=== PATIENT | male | born 1945 | race Caucasian/White ===

== ENCOUNTER → 2020-06-24 14:49 | Outpatient (BNV) | payer MEDICARE, MEDICAID, SELFPAY | PROVIDERS: Visit Provider Internal Medicine | DX: D69.6 Thrombocytopenia, unspecified (principal); D64.9 Anemia, unspecified; E53.8 Deficiency of other specified B group vitamins; N28.9 Disorder of kidney and ureter, unspecified | CPT/HCPCS: 99213; 99214 ==

== ENCOUNTER 2022-12-20 10:41 | Outpatient (REF) | payer MEDICARE, MEDICAID, SELFPAY ==
--- NOTE | ~2022-12-20 | XR_ITS ---
EXAMINATION: XR FOOT, RIGHT XR ANKLE, RIGHT CLINICAL INFORMATION: Pain COMPARISON: None available. TECHNIQUE: Reason right foot 3 views of the right ankle FINDINGS: No acute visible fracture or dislocation. Ankle mortise is symmetric. Multi joint arthritic changes. Spurring the dorsal midfoot. Pes planus. Tiny plantar calcaneal heel spur. Joint spaces and alignment are otherwise maintained. Soft tissue prominence along the dorsum of the forefoot. XR/XR foot RT min 3V IMPRESSION: 1. No acute visible fracture or dislocation. 2. Multi joint arthritic changes. 3. Pes planus. 4. Soft tissue prominence along the dorsum of the forefoot.
--- NOTE | ~2022-12-20 | XR_ITS ---
EXAMINATION: XR FOOT, RIGHT XR ANKLE, RIGHT CLINICAL INFORMATION: Pain COMPARISON: None available. TECHNIQUE: Reason right foot 3 views of the right ankle FINDINGS: No acute visible fracture or dislocation. Ankle mortise is symmetric. Multi joint arthritic changes. Spurring the dorsal midfoot. Pes planus. Tiny plantar calcaneal heel spur. Joint spaces and alignment are otherwise maintained. Soft tissue prominence along the dorsum of the forefoot. XR/XR ankle RT min 3V IMPRESSION: 1. No acute visible fracture or dislocation. 2. Multi joint arthritic changes. 3. Pes planus. 4. Soft tissue prominence along the dorsum of the forefoot.
== END 2022-12-20 10:42 | disposition home or self-care (01) ==
LOC: HO.HHCX 10:41
PROVIDERS: Visit Provider Family Medicine
DX: M25.571 Pain in right ankle and joints of right foot (principal)
CPT/HCPCS: 73610; 73630

== ENCOUNTER 2023-03-29 14:57 | Outpatient (REF) | payer MEDICARE, MEDICAID, SELFPAY | END 2023-03-29 14:58 | disposition home or self-care (01) | LOC: HO.HHCX 14:57 | PROVIDERS: Visit Provider Internal Medicine | DX: M54.50 Low back pain, unspecified (principal) | CPT/HCPCS: 72100 ==

== ENCOUNTER 2023-09-27 11:27 | Outpatient (REF) | payer MEDICARE, MEDICAID, SELFPAY ==
[2023-09-27 13:24] LABS: Basophils Absolute Auto 0.1 X10*3/uL (0.0-0.2); Basophils Percent Auto 0.8 % (0-2); Eosinophils Absolute Auto 1.7 X10*3/uL (0.0-0.4); Eosinophils Percent Auto 22.6 % (0-4); Hematocrit 34.3 % (42.0-52.0); Hemoglobin 11.6 g/dl (14.0-18.0); Imm Gran Abs Auto 0.02 X10*3/uL (0.00-0.03); Imm Gran Pct Auto 0.3 % (0.0-0.4); Lymphocytes Absolute Auto 1.6 X10*3/uL (1.2-4.9); Lymphocytes Percent Auto 20.2 % (20-40); MANUAL DIFF FLAG SCAN; Mean Corpuscular HGB Conc 33.8 g/dl (31.0-36.0); Mean Corpuscular Hemoglobin 29.4 pg (27.0-33.0); Mean Corpuscular Volume 86.8 fL (80.0-98.0); Mean Platelet Volume 9.9 fL (9.4-12.4); Monocytes Absolute Auto 0.6 X10*3/uL (0.1-1.2); Monocytes Percent Auto 8.4 % (2-11); Neutrophils Absolute Auto 3.7 x10*3/uL (2.0-8.3); Neutrophils Percent Auto 47.7 % (45-73); Platelet Count 114 X10*3/uL (160-400); Red Blood Count 3.95 X10*6/uL (4.60-5.80); Red Cell Distribution Width 13.4 % (11.0-16.0); SCAN SMEAR FLAG 1; White Blood Count 7.7 X10*3/uL (4.8-10.8)
[2023-09-27 14:02] LABS: Anion Gap 14 (12-20); Blood Urea Nitrogen 23 mg/dL (9-16); Calcium 9.4 mg/dL (8.4-10.2); Carbon Dioxide 18 mmol/L (22-29); Chloride 112 mmol/L (96-108); Estimated Glomerular Filt Rate 51; Glucose Random 166 mg/dL (60-115); Potassium 5.2 mmol/L (3.3-5.1); Sodium 139 mmol/L (135-145); Uric Acid 10.7 mg/dL (3.4-7.0)
[2023-09-27 14:04] LABS: SLIDE REVIEW VERIFIED
[2023-09-27 14:26] LABS: Erythrocyte Sedimentation Rate 11 MM/HR (0-15)
== END 2023-09-27 11:28 | disposition home or self-care (01) ==
LOC: HO.HHCL 11:27
PROVIDERS: Visit Provider Family Medicine
DX: M25.571 Pain in right ankle and joints of right foot (principal)
CPT/HCPCS: 36415; 80048; 84550; 85025; 85652

== ENCOUNTER 2024-02-20 15:20 | Outpatient (REF) | payer MEDICARE, MEDICAID, SELFPAY ==
--- NOTE | ~2024-02-20 | XR_ITS ---
EXAMINATION: XR SHOULDER, RIGHT CLINICAL INFORMATION: Pain. COMPARISON: None available. TECHNIQUE: AP external rotation, Grashey, scapular Y, and axillary views of the right shoulder. FINDINGS: No acute cortical disruption or malalignment. No lytic or blastic lesions. No subcutaneous emphysema. No metallic or radiopaque foreign body. XR/XR shoulder RT min 2V IMPRESSION: No acute fracture or dislocation. Negative exam. Electronically signed by: Lyndon Tijerina MD 02/21/2024 07:13 AM TERRANCE ACUÑA
== END 2024-02-20 15:21 | disposition home or self-care (01) ==
LOC: HO.HHCX 15:20
PROVIDERS: Visit Provider Family Medicine
DX: M25.511 Pain in right shoulder (principal)
CPT/HCPCS: 73030

== ENCOUNTER → 2024-02-20 15:21 | Outpatient (BNV) | payer MEDICARE, MEDICAID, SELFPAY | PROVIDERS: Visit Provider Radiology Diagnostic Radiology | DX: M25.511 Pain in right shoulder (principal) | CPT/HCPCS: 73030 ==

== ENCOUNTER 2024-11-06 10:19 | Outpatient (REF) | payer MEDICARE, MEDICAID, SELFPAY ==
--- OUTSIDE RECORDS SUMMARY | 2024-11-06 10:31 | XMS_ITS | Clinical Summary ---
Author Organization [facility], Address [address] [place] [address] [address] [address] Phone Care Team Providers Care Sales Producer Name Role Phone Ayesha Sexton MD Primary Care Provide r Allergies No known active allergies Medications amLODIPine (NORVASC) 10 MG tablet Take 10 mg by mouth 1 (one) time each day Active aspirin (ST SUKHDEEP) 81 MG EC tablet Take 81 mg by mouth 1 (one) time each day Active lisinopril (PRINIVIL,ZESTRI L) 30 MG tablet Take 30 mg by mouth 1 (one) time each day Active metFORMIN XR (GLUCOPHATE-XR) 500 MG 24 hr tablet Take 1,000 mg by mouth 1 (one) time each day with dinner Active simvastatin (ZOCOR) 20 MG tablet Take 20 mg by mouth 1 (one) time each day Active Cholecalciferol (VITAMIN D) 50 MCG (2000 UT) capsule Take 2,000 Units by mouth 1 (one) time each day Active allopurinol (ZYLOPRIM) 300 MG tablet Take 300 mg by mouth 1 (one) time each day Active Active Problems Problem Noted Date Diagnosed Date Chronic kidney disease, stage 3 (moderate) 06/03 Gout Overview (06/03/2019): Hyperuricemia Anemia Essential hypertension Type 2 diabetes mellitus Family History Medical History Relation Comments Diabetes Father Hypertension Father Diabetes Mother Hypertension Mother Diabetes Sibling Hypertension Sibling Kidney disease Sibling multiple PCKD Relation Status Comments Father Mother Sibling Social History Tobacco Use Types Packs/Day Years Used Date Smoking Tobacco: Never Sex and Gender Information Value Date Recorded Sex Assigned at Not on file Legal Sex Male 4:32 PM EST Gender Identity Not on file Sexual Orientation Not on file Last Filed Vital Signs Vital Sign Reading Time Taken Comments Blood Pressure 128/72 06/04/2019 8:25 AM EST Pulse 72 01/29/2019 12:00 PM EDT Temperature - - Respiratory Rate - - Oxygen Saturation - - Inhaled Oxygen Concentration - - Weight 93.7 kg (206 lb 9.6 oz) 06/04/2019 8:25 A M EST Height 170.2 cm (5' 7 ) 06/04/2019 8:25 AM EST Body Mass Index 32.36 06/04/2019 8:25 AM EST Plan of Treatment Health Maintenance Due Date Last Done Comments Pneumococcal Vaccine: 50+ Years (1 of 2 - PCV) 1964 Diabetes: Ophthalmology Exam 06/03/2019 Diabetes: Pedal Pulse Checked 06/03/2019 Diabetes: Sensory Foot Exam 06/03/2019 Diabetes: Visual Foot Exam 06/03/2019 Diabetes: Hemoglobin A1C 09/02/2019 020, 01/29/2019, 07/22/2018 Influenza Vaccine (#1) 2024 Hepatitis B Vaccine Aged Out No longe r eligible based on patient's age to complete this topic Procedures Procedure Name Priority Date/Time Associated Diagnosis Comments HEMOGLOBIN A1C Routine 06/04/2019 8:50 AM EST Chronic kidney disease, stage 3 (moderate) (HCC) from Last 3 Months or Most Recently Relevant to Health Maintenance Results * (ABNORMAL) Hemoglobin A1c (06/04/2019 8:50 AM EST) Hemoglobin A1C 7.6(H) (4.0-5.6) % [facility] Comment: Effective 05/11/19, hemoglobin A1c reference range changed. MONITORING: In known diabetic patients, hemoglobin A1c targets should be discussed with health care provider. DIAGNOSTIC USE: The [place] Diabetes Association (ADA) and the World Health Organization (WHO) recommend the use of HbA1c to diagnose diabetes using a threshold of 6.5%. Patients who have an HbA1c between 5.7% and 6.4% are considered at increased risk for developing diabetes in the future. CAUTION: Falsely low HbA1c results may be observed in patients with hemolytic anemia, homozygous forms of abnormal hemoglobin (e.g. SS, CC, SC), , recent blood loss or hemoglobin F greater than 7%. Fructosamine may be used as an alternate test in these cases. REFERENCE: ADA: Standards of Medical Care in Diabetes 2020, The Journal of Clinical and Applied Research and Education Volume 43, Supplement 1 Testing performed or reported by [facility], a Service of [facility], [address] [place] [id number] Ugo Roman MD, Industrial Design Intern Blood specimen (specimen) Venous blood / Unknown 06/04/2019 8:50 AM EST 06/04/2019 8:51 AM EST us Ryann NGUYEN LAB BLOOD ORDERABLES Final Res ult [facility] from Last 3 Months or Most Recently Relevant to Health Maintenance Insurance [address] [place] [id number] Medicare Care Teams Sales Producer Relationship Specialty Start Date End Date Ayesha Sexton MD [address] [place] [address] [place] [phone] [facility] - General 02/10/19
--- OUTSIDE RECORDS SUMMARY | 2024-11-06 10:31 | XMS_ITS | Encounter Summary ---
Author Organization [employer] Address [address] [place] [address] [address] [place] [address] Care Team Providers Care End Finder Forming Department Name Role Phone Ayesha Sexton MD Primary Care Provide r Encounter Details Date Type Department Care Team (Late st Contact Info) Description 10/24/2022 Orders Only [facility] [address] [place], [place] [phone] Aixa Scott LPN Social History Tobacco Use Types Packs/Day Years Used Date Smoking Tobacco: Never Smokeless Tobacco: Never Alcohol Use Standard Drinks/Week Comments Not Currently 0 (1 standard drink = 0.6 oz pur e alcohol) Depression Answer Date Recorded Patient Health Questionnaire-9 Score 0 08/27/2022 Depression Answer Date Recorded Patient Health Questionnaire-2 Score 0 08/27/2022 Sex and Gender Information Value Date Recorded Sex Assigned at Male 02/05/2022 10:20 AM EDT Legal Sex Male 10:20 AM EDT Gender Identity Male 02/05/2022 10:20 AM EDT Sexual Orientation Choose not to disclose 2021 10:20 AM EDT documented as of this encounter Plan of Treatment Upcoming Encounters Date Type Department Care Team (Late st Contact Info) Description 12/01/2024 2:30 PM EDT Office Visit [facility] [address] [place], [place] [phone] Fanta Nolasco, OD [address] [place] [address] documented as of this encounter Procedures Procedure Name Priority Date/Time Associated Diagnosis Comments SLIDE REVIEW Routine 09/27/2023 11:30 AM EDT CBC WITH AUTO DIFFERENTIAL Routine 09/27/2023 11:30 AM EDT SED RATE BY MODIFIED WESTERGREN Routine 09/27/2023 11:30 AM EDT URIC ACID Routine 09/27/2023 11:30 AM EDT BASIC METABOLIC PANEL Routine 09/27/2023 11:30 AM EDT documented in this encounter Results * Sed Rate by Modified Westergren (09/27/2023 11:30 AM EDT) Erythrocyte Sedimentation Rate 11 0 - 15 MM/HR [facility] Comment:Patients with polycy themia and many hemoglobin abnormalitiesmay have depressed sed rates whereas patients with anemiamay have elevated sed rates. 09/27/2023 11:3 0 AM EDT 09/27/2023 12:58 PM EDT Josh Caldwell MD LAB BLOOD ORDERABLES Final Resul t Performing Organization Address City/[facility]/ZIP Co de Phone Number [facility] [address] [place] [phone] * Slide Review (09/27/2023 11:30 AM EDT) Slide Review VERIFIED [facility] 09/27/2023 11:3 0 AM EDT 09/27/2023 12:58 PM EDT Josh Caldwell MD LAB BLOOD ORDERABLES Final Resul t Performing Organization Address [facility]/ZIP Co de Phone Number [facility] [address] [place] [phone] * (ABNORMAL) CBC auto differential (09/27/2023 11:30 AM EDT) White Blood Count 7.7 4.8 - 10.8 X10*3/uL [facility] Red Blood Count 3.95(L) 4.60 - 5.80 X10*6/uL [facility] Hemoglobin 11.6(L) 14.0 - 18.0 g/dl [facility] Hematocrit 34.3(L) 42.0 - 52.0 % [facility] Mean Corpuscular Volume 86.8 80.0 - 98.0 fL [facility] Mean Corpuscular Hemoglobin 29.4 27.0 - 33.0 pg [facility] Mean Corpuscular HGB Conc 33.8 31.0 - 36.0 g/dl [facility] Red Cell Distribution Width 13.4 11.0 - 16.0 % [facility] Platelet Count 114(L) 160 - 400 X10*3/uL [facility] Mean Platelet Volume 9.9 9.4 - 12.4 fL [facility] Neutrophils Percent Auto 47.7 45 - 73 % [facility] Imm Gran Pct Auto 0.3 0.0 - 0.4 % [facility] Lymphocytes Percent Auto 20.2 20 - 40 % [facility] Monocytes Percent Auto 8.4 2 - 11 % [facility] Eosinophils Percent Auto 22.6(H) 0 - 4 % [facility] Basophils Percent Auto 0.8 0 - 2 % [facility] NRBC Pct Auto 0.0 0.0 - 0.2 /100WBC [facility] Neutrophils Absolute Auto 3.7 2.0 - 8.3 x10*3/uL [facility] Imm Gran Abs Auto 0.02 0.00 - 0.03 X10*3/uL [facility] Lymphocytes Absolute Auto 1.6 1.2 - 4.9 X10*3/uL [facility] Monocytes Absolute Auto 0.6 0.1 - 1.2 X10*3/uL [facility] Eosinophils Absolute Auto 1.7(H) 0.0 - 0.4 X10*3/uL [facility] Basophils Absolute Auto 0.1 0.0 - 0.2 X10*3/uL [facility] NRBC Abs Auto 0.000 0.0 - 0.012 X10*3/uL [facility] 09/27/2023 11:3 0 AM EDT 09/27/2023 12:58 PM EDT Josh Caldwell MD LAB BLOOD ORDERABLES Edited Resu lt - Final Performing Organization Address [facility]/ZIP Co de Phone Number [facility] [address] [place] [phone] * (ABNORMAL) Uric acid (09/27/2023 11:30 AM EDT) Uric Acid 10.7(H) 3.4 - 7.0 mg/dL [facility] 09/27/2023 11:3 0 AM EDT 09/27/2023 12:58 PM EDT Josh Caldwell MD LAB BLOOD ORDERABLES Final Resul t Performing Organization Address [facility]/ZIP Co de Phone Number [facility] [address] [place] [phone] * (ABNORMAL) Basic Metabolic Panel (09/27/2023 11:30 AM EDT) Sodium 139 135 - 145 mmol/L [facility] Potassium 5.2(H) 3.3 - 5.1 mmol/L [facility] Chloride 112(H) 96 - 108 mmol/L [facility] Carbon Dioxide 18(L) 22 - 29 mmol/L [facility] Anion Gap 14 12 - 20 [facility] Urea Nitrogen (BUN) 23(H) 9 - 16 mg/dL [facility] Creatinine, Serum 1.36 0.5 - 1.4 mg/dL [facility] Estimated Glomerular Filt Rate 51 [facility] Comment:NOTE: For -Am erican individuals, multiply the result by 1.210.Chronic Kidney Disease: Estimated GFR < 60 mL/min/1.26v9Xxcevl Kidney Disease: Estimated GFR < 15 mL/min/1.73m2 Glucose 166(H) 60 - 115 mg/dL [facility] Calcium 9.4 8.4 - 10.2 mg/dL [facility] 09/27/2023 11:3 0 AM EDT 09/27/2023 12:58 PM EDT us Josh Caldwell MD LAB BLOOD ORDERABLES Final Resul t [facility] [address] [place] [phone] documented in this encounter Visit Diagnoses Not on filedocumented in this encounter Additional Health Concerns Assessment Noted Time PHQ-9 Depression Total Score: 0 08/28/19 23 10:02 AM EDT documented as of this encounter Care Teams End Finder Forming Department Relationship Specialty Start Date End Date Ayesha Sexton MD [address] [place] [phone] PCP - General Family Medicine 12/30/17 documented as of this encounter
[2024-11-06 12:19] LABS: MANUAL DIFF FLAG NO
[2024-11-06 12:24] LABS: Hematocrit 40.3 % (42.0-52.0); Hemoglobin 13.4 g/dl (14.0-18.0); Imm Gran Abs Auto 0.03 X10*3/uL (0.00-0.03); Imm Gran Pct Auto 0.4 % (0.0-0.4); Lymphocytes Absolute Auto 1.4 X10*3/uL (1.2-4.9); Mean Corpuscular HGB Conc 33.3 g/dl (31.0-36.0); Mean Corpuscular Hemoglobin 28.8 pg (27.0-33.0); Mean Corpuscular Volume 86.5 fL (80.0-98.0); NRBC Abs Auto 0.000 X10*3/uL (0.0-0.012); NRBC Pct Auto 0.0 /100WBC (0.0-0.2); Platelet Count 131 X10*3/uL (160-400); Red Blood Count 4.66 X10*6/uL (4.60-5.80); White Blood Count 7.1 X10*3/uL (4.8-10.8)
[2024-11-06 12:53] LABS: Microalbum/Creatinine Ratio Ur 20.0 ug/mg cr (<30)
[2024-11-06 13:18] LABS: Alanine Aminotransferase 20 U/L (0-40); Albumin Level 4.5 g/dL (3.5-5.0); Alkaline Phosphatase 79 U/L (39-117); Anion Gap 13 (12-20); Aspartate Amino Transferase 21 U/L (5-37); Blood Urea Nitrogen 36 mg/dL (9-16); Calcium 9.1 mg/dL (8.4-10.2); Carbon Dioxide 18 mmol/L (22-29); Chloride 111 mmol/L (96-108); Cholesterol 149 mg/dL (<200); Estimated Glomerular Filt Rate 37; HDL Cholesterol 44 mg/dL (>40); Potassium 5.3 mmol/L (3.3-5.1); Sodium 137 mmol/L (135-145); Total Protein 7.6 g/dL (6.5-8.0); Triglycerides 152 mg/dL (<150)
== END 2024-11-06 10:20 | disposition home or self-care (01) ==
LOC: HO.HHCL 10:19
PROVIDERS: PCP Internal Medicine; Visit Provider Internal Medicine
DX: E11.22 Type 2 diabetes mellitus with diabetic chronic kidney disease (principal); N18.30 Chronic kidney disease, stage 3 unspecified; Z79.4 Long term (current) use of insulin
CPT/HCPCS: 36415; 80053; 80061; 82043; 82570; 85025

== ENCOUNTER 2024-12-10 09:33 | Outpatient (REF) | payer MEDICARE, MEDICAID, SELFPAY ==
--- OUTSIDE RECORDS SUMMARY | 2024-12-10 09:20 | XMS_ITS | Encounter Summary ---
Author Organization [employer] Address [address] [facility] 7t [place] [address] Care Team Providers Care B2B Account Executive Name Role Phone Ayesha Sexton MD Primary Care Provide r Reason for Visit * Reason Comments Earache Encounter Details Date Type Department Care Team ([facility] st Contact Info) Description 12/10/2024 9:20 AM EDT Office Visit [facility] [address] [place], [place] [phone] Josh Caldwell MD [address] [place] [address] Acute otalgia, bilateral (Primary Dx); Stage 3a chronic kidney disease (CMS/HCC) Social History Tobacco Use Types Packs/Day Years Used Date Smoking Tobacco: Never Passive Smoke Exposure: Never Smokeless Tobacco: Never Alcohol Use Standard Drinks/Week Comments Not Currently 0 (1 standard drink = 0.6 oz pur e alcohol) Depression Answer Date Recorded Patient Health Questionnaire-9 Score 0 06/24/2024 Patient Health Questionnaire-9 Score 0 06/24/2024 Last PHQ-9: Questionnaire Data Not on file 0 06/24/2024 Housing Stability Answer Date Recorded What is your housing situation today? I have ihsanmehran shetty 02/05/[address] you li ve. Do you have problems with any of the following? None of the above 02/05/2023 Food Insecurity Answer Date Recorded Within the past 12 months, y ou worried that your food would run out before you got money to buy more: Never True 02/05/2023 Within the past 12 months,th e food you bought just didn't last and you didn't have enough money to get more: Never True Transportation Answer Date Recorded In the past 12 months, has l ack of transportation kept you from medical appts, meetings, work or from getting things needed for daily living? No 02/05/2023 Utilities Answer Date Recorded In the past 12 months, has t he electric, gas, oil or water company threatened to shut off services in your home? No 02/05/2023 Depression Answer Date Recorded Patient Health Questionnaire-2 Score 0 06/24/2024 Internet Access Answer Date Recorded Internet Access Q1 No 06/24/2024 Internet Access Q2 I do not want or need it 06/06 Sex and Gender Information Value Date Recorded Sex Assigned at Male 02/05/2022 10:20 AM EDT Legal Sex Male 10:20 AM EDT Gender Identity Male 02/05/2022 10:20 AM EDT Sexual Orientation Choose not to disclose 2021 10:20 AM EDT documented as of this encounter Last Filed Vital Signs Vital Sign Reading Time Taken Comments Blood Pressure 139/79 12/10/2024 9:12 AM EDT Pulse 65 12/10/2024 9:12 AM EDT Temperature 36.8 C (98.3 F) 12/10/2024 9:12 AM EDT Respiratory Rate 18 12/10/2024 9:12 AM EDT Oxygen Saturation 98% 12/10/2024 9:12 AM EDT Inhaled Oxygen Concentration - - Weight 87.8 kg (193 lb 9.6 oz) 12/10/2024 9:12 A M EDT Height - - Body Mass Index 30.32 11/06/2024 9:43 AM EDT documented in this encounter Progress Notes * Josh Caldwell MD - 12/10/2024 9:20 AM EDT Subjective History was provided by the patient. Brent Mcghee is a 79 y.o. male who presents for evaluation of 4-day duration of bilateral ear pain. Denies any discharge or bleeding. Denies cough, congestion, or rhinorrhea. Admits to frequently using Q-tips to clean his ear canal. Patient reports his Atorvastatin dose was recently increased [id number] to 40mg by Cardiology 2 weeks ago. Has chronic diminished hearing, but denies any acute changein hearing. Denies F/C/N/V/D. Of note, his PCP ordered labs about 1 month ago. He has underlying CKD Stage 3. He was found to have a slight bump in creatinine 1.77 and borderline high K+ 5.3 (11/06/2024). He was advised to discontinue Lisinopril 40mg and start Metoprolol XL 25mg daily. States he is tolerating the medication. But he has not yet checked his follow-up BMP as recommended by PCP. Patient also has underling Type 2 DMwith last Hgb A1c 7.0 (11/06/2024). Objective Vitals: 12/10/24 0912 BP: 139/79 BP Location: Left arm Patient Position: Sitting BP Cuff Size: Adult Pulse: 65 Resp: 18 Temp: 98.3 ??F (36.8 ??C) TempSrc: Temporal SpO2: 98% Weight: 193 lb 9.6 oz (87.8 kg) Physical Exam Vitals reviewed. Constitutional: General: He is not in acute distress. Appearance: Normal appearance. He is not ill-appearing, toxic-appearing or diaphoretic. HENT: Head: Normocephalic and atraumatic. Right Ear: Tympanic membrane, ear canal and external ear normal. Left Ear: Tympanic membrane, ear canal and external ear normal. Ears: Comments: Bilateral EAC clear without erythema or edema; no cerumen; TM's clear without erythema orbulging discs. Nose: Nose normal. No congestion or rhinorrhea. Mouth/Throat: Mouth: Mucous membranes are moist. Pharynx: Oropharynx is clear. No oropharyngeal exudate or posterior oropharyngeal erythema. Eyes: Extraocular Movements: Extraocular movements intact. Conjunctiva/sclera: Conjunctivae normal. Cardiovascular: Rate and Rhythm: Normal rate and regular rhythm. Heart sounds: Normal heart sounds. Pulmonary: Effort: Pulmonary effort is normal. Breath sounds: Normal breath sounds. Musculoskeletal: Cervical back: Neck supple. Lymphadenopathy: Cervical: No cervical adenopathy. Skin: General: Skin is warm and dry. Neurological: General: No focal deficit present. Mental Status: He is alert and oriented to person, place, and time. Psychiatric: Mood and Affect: Mood normal. Behavior: Behavior normal. No visits with results within 2 Day(s) from this visit. Latest known visit with results is: Office Visit on 11/06/2024 Component Date Value Ref Range Status Glucose Blood, POC 11/06/2024 133 60 - 200 mg/dL Final Hemoglobin A1C 11/06/2024 7.0 (A) 4.0 - 5.7 % Final Creatinine, Urine 11/06/2024 69.71 mg/dL Final Microalbumin Urine 11/06/2024 14.0 mg/L Final Microalbum Creatinine Ratio Ur 11/06/2024 20.0 <30 ug/mg cr Final Albumin/Creatinine Ratio Reference Ranges: Normal: < 30 ug/mg creatinine Microalbuminuria: 30 - 300 ug/mg creatinineClinical Albuminuria: > 300 ug/mg creatinine Sodium 11/06/2024 137 135 - 145 mmol/L Final Potassium 11/06/2024 5.3 (H) 3.3 - 5.1 mmol/L Final Chloride 11/06/2024 111 (H) 96 - 108 mmol/L Final Carbon Dioxide 11/06/2024 18 (L) 22 - 29 mmol/L Final Anion Gap 11/06/2024 13 12 - 20 Final Urea Nitrogen (BUN) 11/06/2024 36 (H) 9 - 16 mg/dL Final Creatinine, Serum 11/06/2024 1.77 (H) 0.5 - 1.4 mg/dL Final Estimated Glomerular Filt Rate 11/06/2024 37 Final Chronic Kidney Disease: Estimated GFR < 60 mL/min/1.58m4Lohlkw Kidney Disease: Estimated GFR < 15 mL/min/1.73m2 Glucose 11/06/2024 125 (H) 60 - 115 mg/dL Final Calcium 11/06/2024 9.1 8.4 - 10.2 mg/dL Final Bilirubin, Total 11/06/2024 0.3 0.0 - 1.0 mg/dL Final Aspartate Amino Transferase 11/06/2024 21 5 - 37 U/L Final Alanine Aminotransferase 11/06/2024 20 0 - 40 U/L Final Total Protein 11/06/2024 7.6 6.5 - 8.0 g/dL Final Albumin Level 11/06/2024 4.5 3.5 - 5.0 g/dL Final Alkaline Phosphatase 11/06/2024 79 39 - 117 U/L Final Brent was seen today for earache. Diagnoses and all orders for this visit: Acute otalgia, bilateral (Primary) Stage 3a chronic kidney disease (CMS/HCC) Patient presents to [facility] with 4-day duration of bilateral otalgia without clinical evidence of OM orOE Denies any URI symptoms Advised to stop using Q-tips to clean his EAC Ear canals are very dry, but without erythema or edema Trial of OTC baby oil to lubricate (TM's intact) Atorvastatin dose was recently increased, but denies any acute hearing loss Also recommended to get his BMP today (I personally walked him the the laboratory today) Will need to check Cr and K+ after his BP medication was changed from Lisinopril to Metoprolol Patient understands the plan Indications for UC/ER use reviewed Advised to contact the clinic if persistent or worsening symptoms documented in this encounter Plan of Treatment Not on file documented as of this encounter Visit Diagnoses Diagnosis Acute otalgia, bilateral- Primary Stage 3a chronic kidney disease (CMS/HCC) documented in this encounter Additional Health Concerns Assessment Noted Time PHQ-9 Depression Total Score: 0 06/25/19 25 11:27 AM EDT documented as of this encounter Care Teams B2B Account Executive Relationship Specialty Start Date End Date Ayesha Sexton MD [address] [place] [phone] PCP - General Family Medicine 12/30/17 documented as of this encounter
--- OUTSIDE RECORDS SUMMARY | 2024-12-10 10:20 | XMS_ITS | Encounter Summary ---
Author Organization [employer] Address [address] [facility] 7[address] [place] [address] Care Team Providers Care Calendering Supervisor Name Role Phone Ayesha Sexton MD Primary Care Provide r Encounter Details Date Type Department Care Team (Latest Contact Info) Description 12/10/2024 Travel Social History Tobacco Use Types Packs/Day Years [...] is your housing situation today? I have ihsan shetty 02/05/[address] you [...] as of this encounter Plan of Treatment Not on file documented as of this encounter Visit Diagnoses Not on filedocumented in this encounter Additional Health Concerns Assessment Noted Time PHQ-9 Depression Total Score: 0 06/25/19 25 11:27 AM EDT documented as of this encounter Care Teams Calendering Supervisor Relationship Specialty Start Date End Date Ayesha Sexton MD [address] [place] [address] PCP - General Family Medicine 12/30/17 documented as of this encounter
--- OUTSIDE RECORDS SUMMARY | 2024-12-10 10:20 | XMS_ITS | Encounter Summary ---
Author Organization [employer] Address [address] [facility] [address] [place] [address] Care Team Providers Care Admitting Coordinator Name Role Phone Ayesha Sexton MD Primary Care Provide r Reason for Visit * Reason Comments Med Refill Encounter Details Date Type Department Care Team ([facility] st Contact Info) Description 11/26/2024 Refill [facility] [address] [place], [place] [phone] Ayesha Sexton MD [address] [place] [address] Wound of left foot Social History Tobacco Use Types Packs/Day Years [...] as of this encounter Visit Diagnoses Diagnosis Wound of left foot documented in this encounter Additional Health Concerns Assessment Noted Time PHQ-9 Depression Total Score: 0 06/25/19 25 11:27 AM EDT documented as of this encounter Care Teams Admitting Coordinator Relationship Specialty Start Date End Date Ayesha Sexton MD [address] [place] [phone] PCP - General Family Medicine 12/30/17 documented as of this encounter
--- OUTSIDE RECORDS SUMMARY | 2024-12-10 10:20 | XMS_ITS | Clinical Summary ---
Author Organization [employer] Address [address] [place] [address] [address] [place] [address] Care Team Providers Care Software Database Architect Name Role Phone Ayesha Sexton MD Primary Care Provide r Allergies No known active allergies Medications canagliflozin (Invokana) 100 MGIndications:Ty pe 2 diabetes mellitus with stage 3 chronic kidney disease, with long-term current use of insulin, unspecified whether stage 3a or 3b CKD (CMS/[facility]) Take 1 tablet (100 mg) by mouth before breakfast. 30 tablet 11 023 Active Additional Information Patient not taking.Reported on 11/06/2024 Blood Glucose Monitoring Suppl (FreeStyle Marion Lite) w/Device kit TEST BLOOD SUGAR FOUR TIMES DAILY 1 kit 024 Active diphenhydrAMINE (BENADryl) 25 MG tabletIndication s:Skin rash Take 1 tablet (25 mg) by mouth every 8 (eight) hours if needed for itching. 30 tablet 024 Active Lancets miscIndications: Type 2 diabetes mellitus with stage 3 chronic kidney disease, with long-term current use of insulin, unspecified whether stage 3a or 3b CKD (CMS/[facility]) Use to test blood sugar 2 times daily 100 each 024 Active Blood Glucose Monitoring Suppl (FreeStyle Marion Lite) w/Device kitIndications:T ype 2 diabetes mellitus with stage 3 chronic kidney disease, with long-term current use of insulin, unspecified whether stage 3a or 3b CKD (CMS/HCC) Use to test blood sugar 2 times daily 1 kit 024 Active Lidocaine 5 % creamIndications :Acute pain of right shoulder Apply topically bid 30 g 3 Active TRUEplus Lancets 33G miscIndications: Type 2 diabetes mellitus without complications ([facility]) USE DIRECTED TO TEST BLOOD SUGAR EVERY DAY 100 each 11 024 Active FREESTYLE LITE test stripIndications :Type 2 diabetes mellitus without complications ([facility]) USE DIRECTED TO TEST BLOOD SUGAR EVERY DAY 100 each 11 024 Active FREESTYLE LITE test stripIndications :Type 2 diabetes mellitus with stage 3 chronic kidney disease, with long-term current use of insulin, unspecified whether stage 3a or 3b CKD ([facility]) 1 each by Other route Once per day. Use to test blood sugar 2 times daily 100 each 12 024 Active Alcohol Swabs 70 % padsIndications: Type 2 diabetes mellitus with stage 3 chronic kidney disease, with long-term current use of insulin, unspecified whether stage 3a or 3b CKD ([facility]) 1 each Once per day. Use to test blood sugar 2 times daily 100 each 2 Active FreeStyle lancetsIndicatio ns:Type 2 diabetes mellitus with stage 3 chronic kidney disease, with long-term current use of insulin, unspecified whether stage 3a or 3b CKD ([facility]) 1 each by Other route Once per day. 100 each 024 2024 Active hydroCHLOROthiaz von 12.5 MG tabletIndication s:Essential hypertension TAKE 1 TABLET BY MOUTH EVERY DAY IN THE MORNING 90 tablet 3 025 Active empagliflozin (Jardiance) 10 MGIndications:Ty pe 2 diabetes mellitus with stage 3 chronic kidney disease, with long-term current use of insulin, unspecified whether stage 3a or 3b CKD ([facility]) Take 1 tablet (10 mg) by mouth Once per day. 30 tablet 11 025 2025 Active D3 Super Strength 50 MCG (2000 UT) capsuleIndicatio ns:Vitamin D deficiency TAKE 1 CAPSULE BY MOUTH EVERY DAY 90 capsule 2 025 Active amLODIPine (Norvasc) 10 MG tabletIndication s:Essential hypertension TAKE 1 TABLET BY MOUTH EVERY MORNING 90 tablet 1 025 Active simvastatin (Zocor) 20 MG tabletIndication s:Hyperlipidemia due to dietary fat intake TAKE 1 TABLET BY MOUTH EVERY DAY 90 tablet 025 Active Blood Pressure Monitoring (Blood Pressure Cuff) miscIndications: Primary hypertension 1 each Once per day. 1 each Active metoprolol succinate XL (Toprol XL) 25 MG 24 hr tabletIndication s:Primary hypertension Take 1 tablet (25 mg) by mouth Once per day. Do not crush or chew. 30 tablet 11 025 2025 Active metFORMIN (Glucophage) 1000 MG tabletIndication s:Elevated blood sugar TAKE 1 TABLET BY MOUTH EVERY DAY WITH A MEAL 90 tablet 1 025 Active Acetaminophen Extra Strength 500 MG tabletIndication s:Polyarthralgia TAKE 2 TABLETS BY MOUTH EVERY 8 HOURS NEEDED FOR PAIN (leve) 60 tablet 2 025 Active bacitracin 500 UNIT/GM ointmentIndicati ons:Wound of left foot Apply topically 2 times daily. 28 g 025 Active triamcinolone (Kenalog) 0.1 % creamIndications :Rash Apply topically 2 times daily. 30 g 2 025 Active atorvastatin (Lipitor) 40 MG tablet Take 1 tablet by mouth Once per day. 025 Active Acetaminophen Extra Strength 500 MG tabletIndication s:Polyarthralgia TAKE 2 TABLETS BY MOUTH EVERY 8 HOURS NEEDED FOR MILD PAIN 60 tablet 2 025 2024 Discontinued triamcinolone (Kenalog) 0.1 % creamIndications :Rash APPLY TOPICALLY AFFECTED AREA(S) TWICE DAILY IN THE MORNING AND AT BEDTIME NEEDED FOR PAIN OR FOR SWELLING 30 g 2 025 2024 Discontinued(R eorder (will not trigger notification to Pharmacy)) bacitracin 500 UNIT/GM ointmentIndicati ons:Wound of left foot Apply topically 2 times daily. 28 g 025 2024 Discontinued(R eorder (will not trigger notification to Pharmacy)) Active Problems Problem Noted Date Diagnosed Date Wound of left foot 11/06/2024 Assessment & Plan (11/06/2024 10:17 AM EDT): Maintain area dry and clean Bacitricin BID Monitor and reports back if erythema, increase tenderness, discharge Polyarthralgia 03/25/2024 Acute pain of right shoulder 02/20/2024 Assessment & Plan (02/20/2024 3:09 PM EST): Pain x1 day. Decreased ROM and tensed trapezius muscle. Favors right arm. -recommended Tylenol, will prescribe lidocaine patches. Avoid NSAID's due to kidney disease. -ordered XR -referred to Orthopedics 02/20/24 Skin rash 12/26/2023 Assessment & Plan (01/01/2024 10:25 AM EDT): Rash is better but continue to have it I refilled his benadryl and triamcinolone Assessment & Plan (12/26/2023 7:24 PM EDT): Possible poisong IV/contact dermatitis from hx and examination -hydration -Cut nails to prevent spreading rash -benadryl and trialconolone cream, ok calamaine use as well -alarm signs and symoptoms discussed w pt -has apt w PCP 01/01/2024 already scheduled Hyperuricemia 11/27/2023 Essential hypertension 11/27/2023 Assessment & Plan (06/24/2024 2:14 PM EDT): Blood pressure seems to be under control I advised low-sodium diet and to continue with same medication as prescribed Assessment & Plan (03/25/2024 12:00 PM EST): I advised: - Aerobic exercise to reduce BP. Initial goal of 30 min walk 3-5x/week. Increase as tolerated. - low-sodium diet (goal: <2g/day) and heart healthy diet such as DASH to reduce BP and prevent ASCVD. - Home BP monitoring 1-2 x day with goal of <140/90. - Seek immediate medical attention for chest pain, palpitations, SOB, syncope, or sudden changes in mental status. 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 3 chronic kidney disease, without long-term current use of insulin 11/27/2023 Assessment & Plan (01/01/2024 10:25 AM EDT): Diabetes is: controlled - Lab Results Component Value Date HGBA1C 6.6 (A) 01/01/2024 HGBA1C 7.1 (A) 10/01/2023 HGBA1C 7.9 (A) 03/29/2023 - Lab Results Component Value Date MICROALBUR 0.6 06/14/2021 CREATININE 1.36 09/27/2023 -Changes: none - Diabetic eye exam:up to date - Diabetic foot exam:podiatry referral done - Continue lifestyle modifications - Continue current medications - Follow up: 3 months Onychomycosis 10/01/2023 Hyperkalemia 10/01/2023 Assessment & Plan (10/01/2023 10:50 AM EDT): Only slightly high I educated patient and printed information about low potassium diet repeat CMP in about 2 weeks Acute midline low back pain without sciatica Stage 3 chronic kidney disease 06/03/2019 Anemia 05/13/2017 Hypertensive disorder 05/13/2017 Assessment & Plan (11/06/2024 10:15 AM EDT): Today blood pressure borderline high, I advise low Na diet, weight reductio, I will prescribe BP cuff I advise to monitor BP at home and report back if BP is persistently higher than 140/90mmhg, meanwhile c/w same medications do not miss doses Assessment & Plan (10/01/2023 10:48 AM EDT): Maintenance: BMP: up to date Lipid Panel: ordered today I advise: - Aerobic exercise to reduce BP. Initial goal of 30 min walk 3-5x/week. Increase as tolerated. - low-sodium diet (goal: <2g/day) and heart healthy diet such as DASH to reduce BP and prevent ASCVD. - Home BP monitoring 1-2 x day with goal of <140/90. - Seek immediate medical attention for chest pain, palpitations, SOB, syncope, or sudden changes in mental status. - Do not change or discontinue current prescriptions without first consulting health care provider Assessment & Plan (03/29/2023 2:29 PM EST): Maintenance: BMP: up to date Lipid Panel: Up to date ASCVD Risk: On simvastatin 20mg daily - Aerobic exercise to reduce BP. Initial goal of 30 min walk 3-5x/week. Increase as tolerated. - low-sodium diet (goal: <2g/day) and heart healthy diet such as DASH to reduce BP and prevent ASCVD. - Home BP monitoring 1-2 x day with goal of <140/90. - Seek immediate medical attention for chest pain, palpitations, SOB, syncope, or sudden changes in mental status. - Do not change or discontinue current prescriptions without first consulting health care provider Assessment & Plan (11/27/2022 1:25 PM EDT): - Aerobic exercise to reduce BP. Initial goal of 30 min walk 3-5x/week. Increase as tolerated. - low-sodium diet (goal: <2g/day) and heart healthy diet such as DASH to reduce BP and prevent ASCVD. - Home BP monitoring 1-2 x day with goal of <140/90. - Seek immediate medical attention for chest pain, palpitations, SOB, syncope, or sudden changes in mental status. - Do not change or discontinue current prescriptions without first consulting health care provider Assessment & Plan (08/27/2022 10:44 AM EDT): Maintenance: BMP: ordered today Lipid Panel: ordered today ASCVD Risk: Calculate pending updated labs he is already on simvastatin 20mg - Aerobic exercise to reduce BP. Initial goal of 30 min walk 3-5x/week. Increase as tolerated. - low-sodium diet (goal: <2g/day) and heart healthy diet such as DASH to reduce BP and prevent ASCVD. - Home BP monitoring 1-2 x day with goal of <140/90. - Seek immediate medical attention for chest pain, palpitations, SOB, syncope, or sudden changes in mental status. - Do not change or discontinue current prescriptions without first consulting health care provider -all his blood pressure medications are ready at the pharmacy he was instructed to pick them up today Full dentures 05/13/2017 Hyperlipidemia associated with type 2 diabetes m ellitus 05/13/2017 Gout 05/13/2017 Overview (11/27/2023): Onychomycosis of multiple to enails with type 2 diabetes mellitus ([facility]) 05/13/2017 Type 2 diabetes mellitus wit h diabetic chronic kidney disease 05/13/2017 Assessment & Plan (11/06/2024 10:16 AM EDT): Diabetes is: controlled - Lab Results Component Value Date HGBA1C 7.0 (A) 11/06/2024 HGBA1C 7.2 (A) 06/24/2024 HGBA1C 6.6 (A) 01/01/2024 - Lab Results Component Value Date MICROALBUR 0.6 06/14/2021 CREATININE 1.36 09/27/2023 -Changes: none - Diabetic eye exam:has upcoming appointment - Diabetic foot exam:pending - Continue lifestyle modifications - Continue current medications - Follow up: 3 months Assessment & Plan (06/24/2024 2:15 PM EDT): Diabetes is: almost at goal - Lab Results Component Value Date HGBA1C 7.2 (A) 06/24/2024 HGBA1C 6.6 (A) 01/01/2024 HGBA1C 7.1 (A) 10/01/2023 - Lab Results Component Value Date MICROALBUR 0.6 06/14/2021 CREATININE 1.36 09/27/2023 -Changes: I added today Jardiance 10 mg daily continue with metformin 1000 mg twice a day - Diabetic eye exam: Pending - Diabetic foot exam: Up-to-date - Continue lifestyle modifications - Continue current medications - Follow up: 3 months Assessment & Plan (03/25/2024 12:00 PM EST): Diabetes is: controlled - Lab Results Component Value Date HGBA1C 6.6 (A) 01/01/2024 HGBA1C 7.1 (A) 10/01/2023 HGBA1C 7.9 (A) 03/29/2023 - Lab Results Component Value Date MICROALBUR 0.6 06/14/2021 CREATININE 1.36 09/27/2023 -Changes: none - Diabetic eye exam:up to date - Diabetic foot exam:up to date - Continue lifestyle modifications - Continue current medications - Follow up: 3 months Assessment & Plan (10/01/2023 10:49 AM EDT): Diabetes is: controlled - Lab Results Component Value Date HGBA1C 7.1 (A) 10/01/2023 HGBA1C 7.9 (A) 03/29/2023 HGBA1C 6.9 (A) 11/27/2022 - Lab Results Component Value Date MICROALBUR 0.6 06/14/2021 CREATININE 1.36 09/27/2023 -Changes: none - Diabetic eye exam:up to date - Diabetic foot exam:podiatry referral today - Continue lifestyle modifications - Continue current medications - Follow up: 3 months Assessment & Plan (03/29/2023 2:13 PM EST): - Lab Results Component Value Date HGBA1C 7.9 (A) 03/29/2023 HGBA1C 6.9 (A) 11/27/2022 HGBA1C 7.5 (A) 08/27/2022 - Lab Results Component Value Date MICROALBUR 0.6 06/14/2021 - Diabetic eye exam: referral done - Diabetic foot exam:pending - Continue lifestyle modifications - Continue metformin, I added today invokana Assessment & Plan (11/27/2022 1:26 PM EDT): Today's A1c is 6.9 Patient reports he is walking a lot every day and manage to lose some weight - Lab Results Component Value Date HGBA1C 7.5 (A) 08/27/2022 - Lab Results Component Value Date MICROALBUR 0.6 06/14/2021 - - Diabetic eye exam: up to date - Continue lifestyle modifications - Continue current medications Assessment & Plan (08/27/2022 10:45 AM EDT): - Lab Results Component Value Date HGBA1C 7.5 (A) 08/27/2022 - Lab Results Component Value Date MICROALBUR 0.6 06/14/2021 - - Diabetic eye exam: referral today - Diabetic foot exam: pending - Continue lifestyle modifications - Continue current medications Resolved Problems Problem Noted Date Diagnosed Date Resolved Date Acute otitis media 08/27/2022 Impacted cerumen 08/24/2022 12/10/2024 Encounters Date Type Department Care Team Description 12/10/2024 9:20 AM EDT Office Visit [facility] [address] [place] [address] Josh Caldwell MD Acute otalgia, bilateral (Primary Dx); Stage 3a chronic kidney disease ([facility]/HCC) 12/10/2024 Travel 12/01/2024 2:30 PM EDT Office Visit [facility] [address] [place] [address] Gaurav, Fanta, OD 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 associated with type 2 diabetes mellitus ([facility]) (Primary Dx); 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; Pseudophakia of both eyes; Asteroid hyalosis of right eye; Presbyopia 12/01/2024 Travel 11/26/2024 Orders Only [facility] [address] [place] [address] Ayesha Sexton MD Wound of left foot; Rash 11/26/2024 Refill [facility] [address] [place] [address] Ayesha Sexton MD Wound of left foot 11/26/2024 Telephone [facility] [address] [place] [address] Ayesha Sexton MD Med Refill 11/23/2024 Refill [facility] [address] [place] [address] Ayesha Sexton MD Polyarthralgia 11/10/2024 Refill [facility] [address] [place] [address] Ayesha Sexton MD Elevated blood sugar 11/06/2024 10:00 AM EDT Office Visit [facility] [address] [place] [address] yAesha Sexton MD Type 2 diabetes mellitus with stage 3 chronic kidney disease, with long-term current use of insulin, unspecified whether stage 3a or 3b CKD (CMS/HCC); Primary hypertension; Wound of left foot 11/06/2024 Results Follow-Up [facility] [address] [place] [address] Ayesha Sexton MD POCT Glucose, POCT HGB A1C, Albumin, Random Urine W/Creatinine, Comprehensive Metabolic Panel 11/06/2024 Orders Only [facility] [address] [place] [address] Ayesha Sexton MD Primary hypertension; Hyperkalemia 11/06/2024 Travel 11/05/2024 Telephone [facility] [address] [place] [address] Ayesha Sexton MD Chart Prep 10/31/2024 Refill [facility] [address] [place] [address] Ayesha Sexton MD Rash 10/19/2024 Refill [facility] [address] [place] [address] Ayesha Sexton MD 09/28/2024 Refill [facility] [address] [place] [address] Ayesha Sexton MD Polyarthralgia from Last 3 Months Immunizations Immunization Administration Dates Next Due Hep A, Adult 07/23/2009 INFLUENZA VACCINE QUADRIVALE NT RECOMBINANT PRESERVATIVE FREE RIV4 01/20/2020 Influenza High-dose Quadrivalent Preservative Fr ee 12/19/2021,12/21/2020 Influenza injectable quadriv alent IIV4 with preservative 01/19/2019,05/13/2017 Influenza injectable quadrivalent preservative f ree 03/29/2023,05/14/2016 Influenza, High Dose Seasonal, Preservative Free 03/25/2024,01/02/2018 Influenza, IIV3, injectable 02/23/2014, 1 Influenza, Split (incl. purified surface antigen ) 02/10/2013,05/09/2012 Pneumococcal Conjugate PCV 13 04/26/2015 Pneumococcal Polysaccharide PPSV23 02/23/2014 Tdap 06/13/2021,05/31/2011 Zoster, Recombinant 09/29/2021,07/28/2021 Zoster, live 06/15/2014 Family History Medical History Relation Name Comments Breast cancer Mother's Sister Asthma Sister Breast cancer Sister Cancer Sister gastric cancer Kidney disease Sister Relation Name Status Comments Mother's Sister Sister Social History Tobacco Use Types Packs/Day Years Used Date Smoking Tobacco: Never Passive Smoke Exposure: Never Smokeless Tobacco: Never Tobacco Cessation:Counseling Given: Not Answered Alcohol Use Standard Drinks/Week Comments Not Currently [...] not to disclose 2021 10:20 AM EDT Last Filed Vital Signs Vital Sign Reading [...] oz) 12/10/2024 9:12 A M EDT Height 170.2 cm (5' 7 ) 11/06/2024 9:43 AM EDT Body Mass Index 30.32 11/06/2024 9:43 AM EDT Plan of Treatment Health Maintenance Due Date Last Done Comments Dental Prophylaxis 1945 Dental X-Ray: Bitewings 1945 Hepatitis C Screening 02/28/1964 RSV Patients and Patients Aged 60 years or older (1 - 1-dose 75+ series) 2021 Dental Oral Exam 05/30/2024 11/27/2023, 07/12/2016 Diabetes: Foot Exam 09/30/2024 10/01/2023, 4 COVID-19 Vaccine ( season) 2024 04/05/2021, 06/23/2020, 05/26/2020 Influenza Vaccine (#1) 2024 4, 03/29/2023, 12/19/2021, Additional history exists Diabetes: Hemoglobin A1C 02/06/2025 025, 06/24/2024, 01/01/2024, Additional history exists Alcohol/Substance Use Screening 06/24/2025 06/24/2024 Depression Screening 06/24/2025 06/24/2024, 06/25/19 25 SDOH Screening 06/24/2025 06/24/2024 Tobacco Screening 06/24/2025 06/24/2024 Lipid Panel 11/06/2025 11/06/2024, 03/0 12/2021, 10/28/2019 Eye Exam 12/01/2025 12/01/2024, 11/07, 12/01/2024, Additional history exists Dental X-Ray: Full Mouth 11/27/2026 11/27/2023, 04/0 09/2016 DTaP/Tdap/Td Vaccines (3 - Td or Tdap) 06/14/2031 06/13/2021, 05/31/2011 Hepatitis A Vaccines Aged Out 07/23/2009 No long er eligible based on patient's age to complete this topic Pneumococcal Vaccine: 50+ Years Completed 04/26/2015, 02/23/2014 Zoster Vaccines Completed 09/29/2021, 07/08, 06/15/2014 HIB Vaccines Aged Out No longer eligi ble based on patient's age to complete this topic HPV Vaccines Aged Out No longer eligi ble based on patient's age to complete this topic Hepatitis B Vaccines Aged Out No long er eligible based on patient's age to complete this topic IPV Vaccines Aged Out No longer eligi ble based on patient's age to complete this topic Meningococcal B Vaccine Aged Out No l onger eligible based on patient's age to complete this topic Meningococcal Vaccine Aged Out No robert sigifredo eligible based on patient's age to complete this topic RSV under 20 months Aged Out No longe r eligible based on patient's age to complete this topic Rotavirus Vaccines Aged Out No longer eligible based on patient's age to complete this topic Procedures Procedure Name Priority Date/Time Associated Diagnosis Comments OCT, RETINA - OU - BOTH EYES Routine 12/01/2024 4:01 PM EDT 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 COMPREHENSIVE METABOLIC PANEL Routine 11/06/2024 10:36 AM EDT Type 2 diabetes mellitus with stage 3 chronic kidney disease, with long-term current use of insulin, unspecified whether stage 3a or 3b CKD (CMS/HCC) ALBUMIN, RANDOM URINE W/CREATININE Routine 11/06/2024 10:36 AM EDT Type 2 diabetes mellitus with stage 3 chronic kidney disease, with long-term current use of insulin, unspecified whether stage 3a or 3b CKD (CMS/HCC) LIPID PANEL, STANDARD Routine 11/06/2024 10:36 AM EDT Type 2 diabetes mellitus with stage 3 chronic kidney disease, with long-term current use of insulin, unspecified whether stage 3a or 3b CKD (CMS/HCC) CBC WITH AUTO DIFFERENTIAL Routine 11/06/2024 10:36 AM EDT Type 2 diabetes mellitus with stage 3 chronic kidney disease, with long-term current use of insulin, unspecified whether stage 3a or 3b CKD (CMS/HCC) POCT GLYCATED HEMOGLOBIN, TOTAL Routine 11/06/2024 9:46 AM EDT Type 2 diabetes mellitus with stage 3 chronic kidney disease, with long-term current use of insulin, unspecified whether stage 3a or 3b CKD (CMS/HCC) POCT GLUCOSE Routine 11/06/2024 9:44 AM EDT Type 2 diabetes mellitus with stage 3 chronic kidney disease, with long-term current use of insulin, unspecified whether stage 3a or 3b CKD (CMS/HCC) PANORAMIC RADIOGRAPHIC IMAGE Routine 11/27/2023 8:30 AM EDT Edentulism Tooth impaction PERIODIC ORAL EVALUATION - ESTABLISHED PATIENT Routine 11/27/2023 8:30 AM EDT Edentulism Tooth impaction from Last 3 Months or Most Recently Relevant to Health Maintenance Results * OCT, Retina - OU - Both Eyes (12/01/2024 4:01 PM EDT) Narrative Fanta Nolasco, OD - 12/01/2024 4:01 PM EDT Images from the original result were not included. 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 Normal macula in the left eye. Longstanding. Will monitor in 1 year, sooner with any changes in vision. us Fanta Nolasco OD OPHTH TOMOGRAPHY Final Result * Albumin, Random Urine W/Creatinine (11/06/2024 10:36 AM EDT) Creatinine, Urine 69.71 mg/dL [facility] Microalbumin Urine 14.0 mg/L [facility] Microalbum Creatinine Ratio Ur 20.0 <30 ug/mg cr [facility] Comment:Albumin/Creatinine R atio Reference Ranges: Normal: < 30 ug/mg creatinine Microalbuminuria: 30 - 300 ug/mg creatinineClinical Albuminuria: > 300 ug/mg creatinine Urine (Urine, Random) 11/06/2024 10:36 AM EDT 11/06/2024 11:56 AM EDT us Ayesha Callejas MD LAB URINE ORDERABLES Final Result Performing Organization Address City/State/[facility] Co de Phone Number [facility] [address] [place] [phone] * (ABNORMAL) CBC auto differential (11/06/2024 10:36 AM EDT) White Blood Count 7.1 4.8 - 10.8 X10*3/uL [facility] Red Blood Count 4.66 4.60 - 5.80 X10*6/uL [facility] Hemoglobin 13.4(L) 14.0 - 18.0 g/dl [facility] Hematocrit 40.3(L) 42.0 - 52.0 % [facility] Mean Corpuscular Volume 86.5 80.0 - 98.0 fL [facility] Mean Corpuscular Hemoglobin 28.8 27.0 - 33.0 pg [facility] Mean Corpuscular HGB Conc 33.3 31.0 - 36.0 g/dl [facility] [facility] Red Cell Distribution Width 13.8 11.0 - 16.0 % [facility] Platelet Count 131(L) 160 - 400 X10*3/uL [facility] Mean Platelet Volume 9.6 9.4 - 12.4 fL [facility] Neutrophils Percent Auto 52.3 45 - 73 % [facility] Imm Gran Pct Auto 0.4 0.0 - 0.4 % [facility] Lymphocytes Percent Auto 19.4(L) 20 - 40 % [facility] Monocytes Percent Auto 8.2 2 - 11 % [facility] Eosinophils Percent Auto 19.0(H) 0 - 4 % [facility] Basophils Percent Auto 0.7 0 - 2 % [facility] NRBC Pct Auto 0.0 0.0 - 0.2 /100WBC [facility] Neutrophils Absolute Auto 3.7 2.0 - 8.3 x10*3/uL [facility] Imm Gran Abs Auto 0.03 0.00 - 0.03 X10*3/uL [facility] Lymphocytes Absolute Auto 1.4 1.2 - 4.9 X10*3/uL [facility] Monocytes Absolute Auto 0.6 0.1 - 1.2 X10*3/uL [facility] Eosinophils Absolute Auto 1.3(H) 0.0 - 0.4 X10*3/uL [facility] Basophils Absolute Auto 0.1 0.0 - 0.2 X10*3/uL [facility] NRBC Abs Auto 0.000 0.0 - 0.012 X10*3/uL [facility] Blood Venous blood specimen / Unknown 11/06/2024 10:36 AM EDT 11/06/2024 12:14 PM EDT us Ayesha Callejas MD LAB BLOOD ORDERABLES Final Result [facility] [address] [place] [phone] * (ABNORMAL) Lipid Panel, Standard (11/06/2024 10:36 AM EDT) Triglycerides 152(H) <150 mg/dL [facility] Comment:Desirable Triglyceri de: less than 150 mg/dLBorderline High Triglyceride 150-199 mg/dLHigh Triglyceride: 200-499 mg/dLVery High Triglyceride: greater than or equal to 5OO mg/dL Cholesterol 149 <200 mg/dL [facility] Comment:Desirable Cholestero l: less than 200 mg/dLBorderline High Cholesterol: 200-239 mg/dLHigh Cholesterol: greater than 239 mg/dL LDL Cholesterol Calculated 75 <100 mg/dL [facility] Comment:Desirable LDL: less than 100 mg/dLNear Optimal/Above Optimal LDL: 110- 129 mg/dLBorderline High LDL: 130-159 mg/dLHigh LDL: 160-189 mg/dLVery High LDL: greater than or equal to 190 mg/dL HDL Cholesterol 44 >40 mg/dL [facility] Comment:Desirable HDL: great er than 40 mg/dL Note: This HDL assay may give artificially low results in patients with liver disease. Blood Venous blood specimen / Unknown 11/06/2024 10:36 AM EDT 11/06/2024 12:17 PM EDT us Ayesha Callejas MD LAB BLOOD ORDERABLES Final Result [facility] [address] [place] [address] [phone] * (ABNORMAL) Comprehensive Metabolic Panel (11/06/2024 10:36 AM EDT) Sodium 137 135 - 145 mmol/L [facility] Potassium 5.3(H) 3.3 - 5.1 mmol/L [facility] Chloride 111(H) 96 - 108 mmol/L [facility] Carbon Dioxide 18(L) 22 - 29 mmol/L [facility] Anion Gap 13 12 - 20 [facility] Urea Nitrogen (BUN) 36(H) 9 - 16 mg/dL [facility] Creatinine, Serum 1.77(H) 0.5 - 1.4 mg/dL [facility] Estimated Glomerular Filt Rate 37 [facility] Comment:Chronic Kidney Disea se: Estimated GFR < 60 mL/min/[id number] Kidney Disease: Estimated GFR < 15 mL/min/1.73m2 Glucose 125(H) 60 - 115 mg/dL [facility] Calcium 9.1 8.4 - 10.2 mg/dL [facility] Bilirubin, Total 0.3 0.0 - 1.0 mg/dL [facility] Aspartate Amino Transferase 21 5 - 37 U/L [facility] Alanine Aminotransferase 20 0 - 40 U/L [facility] Total Protein 7.6 6.5 - 8.0 g/dL [facility] Albumin Level 4.5 3.5 - 5.0 g/dL [facility] Alkaline Phosphatase 79 39 - 117 U/L [facility] Blood Venous blood specimen / Unknown 11/06/2024 10:36 AM EDT 11/06/2024 12:17 PM EDT Ayesha Callejas MD LAB BLOOD ORDERABLES Final Result [facility] [address] [place] [phone] * (ABNORMAL) POCT HGB A1C (11/06/2024 9:46 AM EDT) Hemoglobin A1C 7.0(A) 4.0 - 5.7 % Blood 11/06/2024 9:46 AM EDT Ayesha Callejas MD POINT OF CARE TEST EN TER/EDIT ORDERABLES Final Result * POCT Glucose (11/06/2024 9:44 AM EDT) Glucose Blood, POC 133 60 - 200 mg/dL Blood Capillary blood specimen / Unknown 11/06/2024 9:44 AM EDT us Ayesha Callejas MD POINT OF CARE TEST EN TER/EDIT ORDERABLES Final Result from Last 3 [place] [id number] [facility]SN FULL (MEDICAID) Care Teams Software Database Architect Relationship Specialty Start Date End Date Ayesha Sexton MD [address] [place] [phone] PCP - General Family Medicine 12/30/17
--- OUTSIDE RECORDS SUMMARY | 2024-12-10 10:20 | XMS_ITS | Encounter Summary ---
Author Organization [employer] Address [address] [facility] 7t [place] [address] Care Team Providers Care Rivet Heater Name Role Phone Ayesha Sexton MD Primary Care Provide r Reason for Visit * Reason Comments Med Refill Encounter Details Date Type Department Care Team ([facility] st Contact Info) Description 01/11/2023 Refill [facility] [address] [place] [address] Ayesha Sexton MD [address] [place] [address] Vitamin D deficiency Social History Tobacco Use Types Packs/Day Years [...] as of this encounter Visit Diagnoses Diagnosis Vitamin D deficiency documented in this encounter Additional Health Concerns Assessment Noted Time PHQ-9 Depression Total Score: 0 08/28/19 23 10:02 AM EDT documented as of this encounter Care Teams Rivet Heater Relationship Specialty Start Date End Date Ayesha Sexton MD [address] [facility] [place] [place] [address] PCP - General Family Medicine 12/30/17 documented as of this encounter
--- OUTSIDE RECORDS SUMMARY | 2024-12-10 10:20 | XMS_ITS | Encounter Summary ---
Author Organization [employer] Address [address] [facility] 7t [place] [address] Care Team Providers Care Electronic Components Assembler Name Role Phone Ayesha Sexton MD Primary Care Provide r Encounter Details Date Type Department Care Team (Late st Contact Info) Description 10/24/2022 Orders Only [facility] [address] [place] [address] Aixa Scott LPN Social History Tobacco Use [...] on file documented as of this encounter Procedures Procedure [...] encounter Results * Sed Rate by Modified Ayah (09/27/2023 11:30 AM EDT) Erythrocyte Sedimentation Rate 11 0 - 15 MM/HR [facility] Comment:Patients with polycy themia and many hemoglobin abnormalitiesmay have depressed sed rates whereas patients with anemiamay have elevated sed rates. 09/27/2023 11:3 0 AM EDT 09/27/2023 12:58 PM EDT Josh Caldwell MD LAB BLOOD ORDERABLES Final Resul t Performing Organization Address [facility] [address] [facility] Co de Phone Number [facility] [address] [place] [phone] * Slide Review (09/27/2023 11:30 AM EDT) Slide Review VERIFIED [facility] 09/27/2023 11:3 0 AM EDT 09/27/2023 12:58 PM EDT Josh Caldwell MD LAB BLOOD ORDERABLES Final Resul t Performing Organization Address [facility] [address]/[facility] Co de Phone Number [facility] [address] [place] [phone] * (ABNORMAL) CBC auto differential (09/27/2023 11:30 AM EDT) White Blood Count 7.7 4.8 - 10.8 X10*3/uL [facility] Red Blood Count 3.95(L) 4.60 - 5.80 X10*6/uL [facility] Hemoglobin 11.6(L) 14.0 - 18.0 g/dl [facility] Hematocrit 34.3(L) 42.0 - 52.0 % [facility] Mean Corpuscular Volume 86.8 80.0 - 98.0 fL [facility] Mean Corpuscular Hemoglobin 29.4 27.0 - 33.0 pg [facility] Mean Corpuscular HGB Conc 33.8 31.0 - 36.0 g/dl [facility] Red Cell Distribution Width 13.4 11.0 - 16.0 % [facility] Platelet Count 114(L) 160 - 400 X10*3/uL [facility] Mean Platelet Volume 9.9 9.4 - 12.4 fL [facility] Neutrophils Percent Auto 47.7 45 - 73 % [facility] Imm Gran Pct Auto 0.3 0.0 - 0.4 % [facility] Lymphocytes Percent Auto 20.2 20 - 40 % [facility] Monocytes Percent Auto 8.4 2 - 11 % [facility] Eosinophils Percent Auto 22.6(H) 0 - 4 % [facility] Basophils Percent Auto 0.8 0 - 2 % [facility] NRBC Pct Auto 0.0 0.0 - 0.2 /100WBC [facility] Neutrophils Absolute Auto 3.7 2.0 - 8.3 x10*3/uL [facility] Imm Gran Abs Auto 0.02 0.00 - 0.03 X10*3/uL [facility] Lymphocytes Absolute Auto 1.6 1.2 - 4.9 X10*3/uL [facility] Monocytes Absolute Auto 0.6 0.1 - 1.2 X10*3/uL [facility] Eosinophils Absolute Auto 1.7(H) 0.0 - 0.4 X10*3/uL [facility] Basophils Absolute Auto 0.1 0.0 - 0.2 X10*3/uL [facility] NRBC Abs Auto 0.000 0.0 - 0.012 X10*3/uL [facility] 09/27/2023 11:3 0 AM EDT 09/27/2023 12:58 PM EDT us Josh Caldwell MD LAB BLOOD ORDERABLES Edited Resu lt - Final [facility] [address] [place] [phone] * (ABNORMAL) Uric acid (09/27/2023 11:30 AM EDT) Uric Acid 10.7(H) 3.4 - 7.0 mg/dL [facility] 09/27/2023 11:3 0 AM EDT 09/27/2023 12:58 PM EDT Josh Caldwell MD LAB BLOOD ORDERABLES Final Resul t Performing Organization Address [facility] Co de Phone Number [facility] [address] [place] [address] [phone] * (ABNORMAL) Basic Metabolic Panel (09/27/2023 11:30 AM EDT) Sodium 139 135 - 145 mmol/L [facility] Potassium 5.2(H) 3.3 - 5.1 mmol/L [facility] Chloride 112(H) 96 - 108 mmol/L [facility] Carbon Dioxide 18(L) 22 - 29 mmol/L [facility] Anion Gap 14 12 - 20 [facility] Urea Nitrogen (BUN) 23(H) 9 - 16 mg/dL [facility] Creatinine, Serum 1.36 0.5 - 1.4 mg/dL [facility] Estimated Glomerular Filt Rate 51 [facility] Comment:NOTE: For -Am erican individuals, multiply the result by 1.210.Chronic Kidney Disease: Estimated GFR < 60 mL/min/[id number] Kidney Disease: Estimated GFR < 15 mL/min/1.73m2 Glucose 166(H) 60 - 115 mg/dL [facility] Calcium 9.4 8.4 - 10.2 mg/dL [facility] 09/27/2023 11:3 0 AM EDT 09/27/2023 12:58 PM EDT us Josh Caldwell MD LAB BLOOD ORDERABLES Final Resul t [facility] [address] [place] [phone] documented in this encounter Visit Diagnoses Not on filedocumented in this encounter Additional Health Concerns Assessment Noted Time PHQ-9 Depression Total Score: 0 08/28/19 23 10:02 AM EDT documented as of this encounter Care Teams Electronic Components Assembler Relationship Specialty Start Date End Date Ayesha Sexton MD [address] [place] [address] PCP - General Family Medicine 12/30/17 documented as of this encounter
--- OUTSIDE RECORDS SUMMARY | 2024-12-10 10:20 | XMS_ITS | Encounter Summary ---
Author Organization [employer] Address [address] [facility] 7t [place] [address] Care Team Providers Care Farm General Manager Name Role Phone Ayesha Sexton MD Primary Care Provide r Reason for Visit * Reason Comments Med Refill Encounter Details Date Type Department Care Team ([facility] st Contact Info) Description 05/12/2024 Refill [facility] [address] [place], [place] [phone] Mimi Foss MD [address] [place] [address] Acute pain of right shoulder Social History Tobacco Use Types Packs/Day Years Used Date Smoking Tobacco: Never Smokeless Tobacco: Never Alcohol Use Standard Drinks/Week Comments Not Currently 0 (1 standard drink = 0.6 oz pur e alcohol) Depression Answer Date Recorded Patient Health Questionnaire-9 Score 0 10/01/2023 Patient Health Questionnaire-9 Score 0 10/01/2023 Last PHQ-9: Questionnaire Data Not on file 0 10/01/2023 Housing Stability Answer Date Recorded What is [...] Date Recorded Patient Health Questionnaire-2 Score 0 10/01/2023 Sex and Gender Information Value Date Recorded Sex Assigned at Male 02/05/2022 10:20 AM EDT Legal Sex Male 10:20 AM EDT Gender Identity Male 02/05/2022 10:20 AM EDT Sexual Orientation Choose not to disclose 2021 10:20 AM EDT documented as of this encounter Plan of Treatment Not on file documented as of this encounter Visit Diagnoses Diagnosis Acute pain of right shoulder documented in this encounter Additional Health Concerns Assessment Noted Time PHQ-9 Depression Total Score: 0 10/01/19 9:53 AM EDT documented as of this encounter Care Teams Farm General Manager Relationship Specialty Start Date End Date Ayesha Sexton MD [address] [place] [phone] PCP - General Family Medicine 12/30/17 documented as of this encounter
--- OUTSIDE RECORDS SUMMARY | 2024-12-10 10:20 | XMS_ITS | Clinical Summary ---
Author Organization [facility], Address [address] [place] [address] [address] [phone] Phone Care Team Providers Care Peritoneal Dialysis Registered Nurse Name Role Phone Ayesha Sexton MD Primary [...] Health Maintenance Due Date Last Done Comments Diabetes: Ophthalmology Exam 06/03/2019 Diabetes: Pedal Pulse Checked 06/03/2019 Diabetes: Sensory Foot Exam 06/03/2019 Diabetes: Visual Foot Exam 06/03/2019 Influenza Vaccine (#1) 2024 4, 03/29/2023, 01/20/2020, Additional history exists Diabetes: Hemoglobin A1C 02/06/2025 025, 06/04/2019, 01/29/2019, Additional history exists Pneumococcal Vaccine: 50+ Years Completed 04/26/2015, 02/23/2014 Pneumococcal Vaccine: Peds (0 to 5 Years) and At-Risk Patients (6 to 49 Years) Discontinued 04/26/2015, 02/23/2014 Hepatitis B Vaccine Aged Out No longe [...] AM EST) Hemoglobin A1C 7.6(H) (4.0-5.6) % [facility] Comment: Effective 05/11/19, hemoglobin A1c reference range changed. MONITORING: In known diabetic patients, hemoglobin A1c targets should be discussed with health care provider. DIAGNOSTIC USE: The [place] [employer] (ADA) and the World Health [...] Supplement 1 Testing performed or reported by [facility], a Service of [facility], [address] [place] [phone] Ugo Roman MD, [employer] Blood specimen (specimen) Venous blood / Unknown 06/04/2019 8:50 AM EST 06/04/2019 8:51 AM EST us Ryann NGUYEN LAB BLOOD ORDERABLES Final Res ult [facility] from Last 3 Months or Most Recently Relevant to Health Maintenance Insurance Care Teams Peritoneal Dialysis Registered Nurse Relationship Specialty Start Date End Date Ayesha Sexton MD [address] [place] [address] JORDINSUSAN BISHOP [phone] PCP - General 02/10/19
--- OUTSIDE RECORDS SUMMARY | 2024-12-10 10:20 | XMS_ITS | Encounter Summary ---
Author Organization [employer] Address [address] [facility] [address]t [place] [address] Care Team Providers Care Choke Reamer Name Role Phone Ayesha Sexton MD Primary Care Provide r Encounter Details Date Type Department Care Team ([facility] st Contact Info) Description 11/06/2024 Orders Only [facility] [address] [place], [place] [phone] Ayesha Sexton MD [address] [place], [place] [phone] Primary hypertension; Hyperkalemia Social History Tobacco Use Types Packs/Day Years [...] as of this encounter Plan of Treatment Scheduled Orders Name Type Priority Associated Diagnoses Orde r Schedule Basic Metabolic Panel Lab Routine Hyperkalemia Expected: 11/06/2024 (Approximate), Expires: 11/06/2025 documented as of this encounter Visit Diagnoses Diagnosis Primary hypertension Unspecified essential hypertension Hyperkalemia Hyperpotassemia documented in this encounter Additional Health Concerns Assessment Noted Time PHQ-9 Depression Total Score: 0 06/25/19 25 11:27 AM EDT documented as of this encounter Care Teams Choke Reamer Relationship Specialty Start Date End Date Ayesha Sexton MD [address] [place] [address] PCP - General Family Medicine 12/30/17 documented as of this encounter
[2024-12-10 12:10] LABS: Alanine Aminotransferase 26 U/L (0-40); Albumin Level 4.4 g/dL (3.5-5.0); Alkaline Phosphatase 83 U/L (39-117); Anion Gap 12 (12-20); Aspartate Amino Transferase 22 U/L (5-37); Blood Urea Nitrogen 43 mg/dL (9-16); Calcium 9.2 mg/dL (8.4-10.2); Carbon Dioxide 21 mmol/L (22-29); Chloride 109 mmol/L (96-108); Cholesterol 110 mg/dL (<200); Estimated Glomerular Filt Rate 38; HDL Cholesterol 38 mg/dL (>40); Potassium 5.0 mmol/L (3.3-5.1); Sodium 137 mmol/L (135-145); Total Protein 7.4 g/dL (6.5-8.0); Triglycerides 129 mg/dL (<150)
== END 2024-12-10 09:34 | disposition home or self-care (01) ==
LOC: HO.HHCL 09:33
PROVIDERS: PCP Internal Medicine; Visit Provider Internal Medicine
DX: E11.22 Type 2 diabetes mellitus with diabetic chronic kidney disease (principal); N18.30 Chronic kidney disease, stage 3 unspecified; Z79.4 Long term (current) use of insulin
CPT/HCPCS: 36415; 80053; 80061

== ENCOUNTER 2025-02-18 12:07 | Outpatient (REF) | payer MEDICARE, MEDICAID, SELFPAY ==
--- NOTE | ~2025-02-18 | XR_ITS ---
EXAMINATION: XR FOOT, LEFT CLINICAL INFORMATION: acute L ankle/foot pain and swelling COMPARISON: None available. TECHNIQUE: AP, lateral, and oblique views of the left foot. FINDINGS: Mild hallux valgus deformity at the first MTP joint and degenerative change with joint space narrowing, osteophyte formation and some cystic change in the medial first metatarsal head. There is adjacent soft tissue swelling. Degenerative changes of the midfoot at the talonavicular and navicular cuneiform joints with small osteophytes. Small plantar calcaneal spur. No fracture or dislocation. Mild soft tissue arterial calcification. XR/XR foot LT min 3V IMPRESSION: Hallux valgus deformity at the first MTP joint and mild degenerative changes. Electronically signed by: Micaela Kaur MD 02/18/2025 01:41 PM [place]
--- NOTE | ~2025-02-18 | XR_ITS ---
EXAMINATION: XR ANKLE, LEFT CLINICAL INFORMATION: acute L ankle/foot pain and swelling COMPARISON: None available. TECHNIQUE: AP, lateral, and mortise views of the left ankle. FINDINGS: Cortical thickening and increased sclerosis of the distal lateral shafts of the tibia and fibula, question related to old trauma. No acute fracture or dislocation. Normal ankle mortise. Mild soft tissue arterial calcification. XR/XR ankle LT min 3V IMPRESSION: Cortical thickening and increased sclerosis of the distal lateral shaft of the tibia and fibula, question secondary to old trauma. Electronically signed by: Micaela Kaur MD 02/18/2025 01:42 PM EST
--- OUTSIDE RECORDS SUMMARY | 2025-02-18 11:00 | XMS_ITS | Encounter Summary ---
Author Organization [employer] Address [address] [facility] 7t [place] [address] Care Team Providers Care Robotic Toy Inventor Name Role Phone Ayesha Sexton MD Primary Care Provide r Encounter Details Date Type Department Care Team ([facility] st Contact Info) Description 02/18/2025 11:00 AM EST Office Visit [facility] [address], [place] [phone] Ryann See DO [address] [place], [place] [phone] Acute left ankle pain (Primary Dx); Acute foot pain, left; Polyarthralgia Social History Tobacco Use Types Packs/Day Years [...] Sign Reading Time Taken Comments Blood Pressure 140/80 02/18/2025 10:57 AM EST Pulse 80 02/18/2025 10:57 AM EST Temperature 36.6 C (97.9 F) 02/18/2025 10:57 AM EST Respiratory Rate 20 02/18/2025 10:57 AM EST Oxygen Saturation 98% 02/18/2025 10:57 AM EST Inhaled Oxygen Concentration - - Weight 86.2 kg (190 lb) 02/18/2025 10:57 AM EST Height 170.2 cm (5' 7 ) 02/18/2025 10:57 AM EST Body Mass Index 29.76 02/18/2025 10:57 AM EST documented in this encounter Progress Notes * Ryann See, DO - 02/18/2025 11:00 AM EST SUBJECTIVE Brent Mcghee is a 79 y.o. male who presents for Sick Visit. He presents to [place] today c/o LLE pain. He c/o pain that starts in his L ankle and radiates down. He says that he had similar symptoms backin October and symptoms started again 3 days ago. He says that the pain is constant and makes it hard to walk. He reports swelling and redness. No fevers. He denies any trauma or injury. He has gout, last flare ~ 7-8 years ago. He says he has been using a cream, which helps. He also takes tylenol for pain. History provided by: Patient pitting machine operator used: Yes Ankle Pain The incident occurred 3 to 5 days ago. There was no injury mechanism. The pain is present in the left foot and left ankle. The pain is severe. The pain has been Constant since onset. Pertinent negatives include no inability to bear weight, loss of motion, loss of sensation, muscle weakness, numbness or tingling. The symptoms are aggravated by movement and weight bearing. Review of Systems Constitutional: Negative for activity change, appetite change and unexpected weight change. Respiratory: Negative for chest tightness. Cardiovascular: Negative for palpitations. Musculoskeletal: Positive for arthralgias, gait problem and joint swelling. Neurological: Negative for dizziness, tingling, weakness and numbness. Patient Active Problem List Diagnosis Anemia Hypertensive disorder Full dentures Hyperlipidemia associated with type 2 diabetes mellitus (HCC) Gout Onychomycosis of multiple toenails with type 2 diabetes mellitus (HCC) Type 2 diabetes mellitus with diabetic chronic kidney disease ([facility]) Acute midline low back pain without sciatica Onychomycosis Hyperkalemia Stage 3 chronic kidney disease (CMS/HCC) (HCC) Hyperuricemia Essential hypertension Type 2 diabetes mellitus with stage 3 chronic kidney disease, without long-term current use of insulin ([facility]) Skin rash Acute pain of right shoulder Polyarthralgia Wound of left foot No Known Allergies OBJECTIVE Visit Vitals BP (!) 140/80 (BP Location: Right arm, Patient Position: Sitting, BP Cuff Size: Adult) Pulse 80 Temp 97.9 ??F (36.6 ??C) (Oral) Resp 20 Ht 5' 7 (1.702 m) Wt 190 lb (86.2 kg) SpO2 98% BMI 29.76 kg/m?? Smoking Status Never BSA 2.02 m?? Physical Exam Constitutional: General: He is not in acute distress. Appearance: Normal appearance. Cardiovascular: Rate and Rhythm: Normal rate and regular rhythm. Heart sounds: Normal heart sounds. No murmur heard. Pulmonary: Effort: Pulmonary effort is normal. Breath sounds: Normal breath sounds. No wheezing or rhonchi. Musculoskeletal: Left ankle: Swelling present. No deformity or ecchymosis. Tenderness present over the lateral malleolus. Decreased range of motion. Normal pulse. Left Achilles Tendon: No tenderness. Left foot: No swelling or deformity. Normal pulse. Neurological: General: No focal deficit present. Mental Status: He is alert and oriented to person, place, and time. Cranial Nerves: No cranial nerve deficit. Motor: No weakness. Comments: Ambulates with cane Psychiatric: Mood and Affect: Mood normal. Assessment/Plan Diagnoses and all orders for this visit: Acute left ankle pain Acute foot pain, left With swelling and TTP, ? Arthritis flare vs gout -provided reassurance -referred for foot and ankle XR -treat with prednisone BID x 5 days -encouraged standing doses of tylenol -trial diclofenac gel -encouraged ice therapy -consider eval with podiatry if no improvement -advised contact [facility] if sx change or worsen, he agrees with plans --Follow-up with PCP as scheduled or sooner prn-- Current Outpatient Medications: Acetaminophen Extra Strength 500 MG tablet, TAKE 2 TABLETS BY MOUTH EVERY 8 HOURS NEEDED FOR PAIN, Disp: 60 tablet, Rfl: 2 Alcohol Swabs (Alcohol Prep) 70 % pads, USE DIRECTED TO TEST BLOOD SUGAR TWICE DAILY, Disp: 100 each, Rfl: 11 amLODIPine (Norvasc) 10 MG tablet, TAKE 1 TABLET BY MOUTH EVERY MORNING, Disp: 90 tablet, Rfl: 1 atorvastatin (Lipitor) 40 MG tablet, Take 1 tablet by mouth Once per day., Disp: , Rfl: bacitracin 500 UNIT/GM ointment, APPLY TOPICALLY TO THE AFFECTED AREA(S) TWICE DAILY, Disp: 28.4 g,Rfl: 0 Blood Glucose Monitoring Suppl (FreeStyle Orient Lite) w/Device kit, TEST BLOOD SUGAR FOUR TIMES DAILY, Disp: 1 kit, Rfl: 0 Blood Glucose Monitoring Suppl (FreeStyle Orient Lite) w/Device kit, Use to test blood sugar 2 times daily, Disp: 1 kit, Rfl: 0 Blood Pressure Monitoring (Blood Pressure Cuff) misc, 1 each Once per day., Disp: 1 each, Rfl: 0 D3 Super Strength 50 MCG (2000 UT) capsule, TAKE 1 CAPSULE BY MOUTH EVERY DAY, Disp: 90 capsule, Rfl: 2 Diclofenac Sodium 1 % gel, Apply 2 g topically if needed in the morning, at noon, in the evening, and at bedtime (pain)., Disp: 150 g, Rfl: 3 diphenhydrAMINE (BENADryl) 25 MG tablet, Take 1 tablet (25 mg) by mouth every 8 (eight) hours if needed for itching., Disp: 30 tablet, Rfl: 0 empagliflozin (Jardiance) 10 MG, Take 1 tablet (10 mg) by mouth Once per day., Disp: 30 tablet, Rfl: 11 FreeStyle lancets, 1 each by Other route Once per day., Disp: 100 each, Rfl: 12 FREESTYLE LITE test strip, USE DIRECTED TO TEST BLOOD SUGAR EVERY DAY, Disp: 100 each, Rfl: 11 FREESTYLE LITE test strip, 1 each by Other route Once per day. Use to test blood sugar 2 times daily, Disp: 100 each, Rfl: 12 hydroCHLOROthiazide 12.5 MG tablet, TAKE 1 TABLET BY MOUTH EVERY DAY IN THE MORNING, Disp: 90 tablet, Rfl: 3 Lancets misc, Use to test blood sugar 2 times daily, Disp: 100 each, Rfl: 0 Lidocaine 5 % cream, Apply topically bid, Disp: 30 g, Rfl: 3 metFORMIN (Glucophage) 1000 MG tablet, TAKE 1 TABLET BY MOUTH EVERY DAY WITH A MEAL, Disp: 90 tablet, Rfl: 1 metoprolol succinate XL (Toprol XL) 25 MG 24 hr tablet, Take 1 tablet (25 mg) by mouth Once per day. Do not crush or chew., Disp: 30 tablet, Rfl: 11 predniSONE (Deltasone) 20 MG tablet, Take 1 tablet (20 mg) by mouth 2 times daily for 5 days., Disp: 10 tablet, Rfl: 0 simvastatin (Zocor) 20 MG tablet, TAKE 1 TABLET BY MOUTH EVERY DAY, Disp: 90 tablet, Rfl: 0 triamcinolone (Kenalog) 0.1 % cream, APPLY TOPICALLY TO THE AFFECTED AREA(S) TWICE DAILY DIRECTED, Disp: 30 g, Rfl: 2 TRUEplus Lancets 33G misc, USE DIRECTED TO TEST BLOOD SUGAR EVERY DAY, Disp: 100 each, Rfl: 11 Scribe Attestation: Job Reyez, am serving as a scribe to document services personally performed by Ryann Pereira, based on the patient's response to questions by provider and provider's statements to me. 02/18/25 12:38 PM Physicians Attestation: Ryann Reyez DO, have reviewed the information by the scribe, Job Mcneal, for accuracy and agree with its content. documented in this encounter Plan of Treatment Not on file documented as of this encounter Goals Goal Patient Goal Type Associated Problems Recent Progress Patient-Stated? Author Help patients manage their type 2 diabetes Care Plan Help patients manage their type 2 diabetes Jennifer Menjivar MA Weekly blood pressure task Care Plan Weekly blood pressure task Jennifer Menjivar MA Help patients manage their type 2 diabetes Care Plan Help patients manage their type 2 diabetes Jennifer Menjivar MA Patient has chronic kidney disease Care Plan Patient has chronic kidney disease Jennifer Menjivar MA Weekly blood pressure task Care Plan Weekly blood pressure task Ryann Minaya DO Patient has chronic kidney disease Care Plan Patient has chronic kidney disease No Ryann See DO documented as of this encounter Procedures Procedure Name Priority Date/Time Associated Diagnosis Comments XR ANKLE 3+ VIEWS LEFT Routine 02/18/2025 1:10 PM EST Acute left ankle pain Acute foot pain, left XR FOOT 3+ VIEWS LEFT Routine 02/18/2025 12:27 PM EST Acute left ankle pain Acute foot pain, left documented in this encounter Results * XR Ankle 3+ Views Left (02/18/2025 1:10 PM EST) Anatomical Region Laterality Modality Lower Extremities, Ankle Left Radiogr aphic Imaging 02/18/2025 1:1 0 PM EST Narrative 02/18/2025 1:45 PM EST [facility] [address] [place] [address] XRay Report Signed Patient: Brent Mcghee MR#: [id number] 2 : 1945 Acct:[id number] Age/Sex: 79 / M ADM Date: 02/18/25 Loc: HO.HHCX Attending Dr: Ryann See DO Ordering Physician: Ryann See DO Date of Service: 02/18/25 Procedure(s): XR ankle LT min 3V Accession Number(s): [id number] cc: Ryann See DO Reason for Exam: acute L ankle/foot pain and swelling EXAMINATION: XR ANKLE, LEFT CLINICAL INFORMATION: acute L ankle/foot pain and swelling COMPARISON: None available. TECHNIQUE: AP, lateral, and mortise views of the left ankle. FINDINGS: Cortical thickening and increased sclerosis of the distal lateral shafts of the tibia and fibula, question related to old trauma. No acute fracture or dislocation. Normal ankle mortise. Mild soft tissue arterial calcification. XR/XR ankle LT min 3V IMPRESSION: Cortical thickening and increased sclerosis of the distal lateral shaft of the tibia and fibula, question secondary to old trauma. Electronically signed by: Micaela Kaur MD 02/18/2025 01:42 PM [facility] Dictated By: Micaela Kaur MD Signed By: <Electronically signed by Micaela Kaur MD in OV> 02/18/25 1342 DD/ 1310 TD/TT: 02/18/25 1314 Rotary Envelope Machine Operator: ARSALAN Procedure Note Donotuseinterpreter, Image - 02/18/[address] [address] XRay Report Signed Patient: Brent Mcghee [facility]#: [id number] 2 : 6Acct:[id number] Age/Sex: 79 / MADM Date: 02/18/25 Loc: .HHCX Attending Dr: Ryann See DO Ordering Physician: Ryann See DO Date of Service: 02/18/25 Procedure(s): XR ankle LT min 3V Accession Number(s): [id number] cc: Ryann See DO Reason for Exam: acute L ankle/foot pain and swelling EXAMINATION: XR ANKLE, LEFT CLINICAL INFORMATION: acute L ankle/foot pain and swelling COMPARISON: None available. TECHNIQUE: AP, lateral, and mortise views of the left ankle. FINDINGS: Cortical thickening and increased sclerosis of the distal lateral shafts of the tibia and fibula, question related to old trauma. No acute fracture or dislocation. Normal ankle mortise. Mild soft tissue arterial calcification. XR/XR ankle LT min 3V IMPRESSION: Cortical thickening and increased sclerosis of the distal lateral shaft of the tibia and fibula, question secondary to old trauma. Electronically signed by: Micaela Kaur MD 02/18/2025 01:42 PM EST RP Dictated By: Micaela Kaur MD Signed By: <Electronically signed by Micaela Kaur MD in OV> 02/18/25 1342 DD/ 1310 TD/TT: 02/18/25 1314 Rotary Envelope Machine Operator: ARSALAN Ryann See DO IMG XR PROCEDURES Final Resu lt * XR Foot 3+ Views Left (02/18/2025 12:27 PM EST) Anatomical Region Laterality Modality Lower Extremities, Foot Left Radiogra phic Imaging 02/18/2025 12:2 7 PM EST Narrative 02/18/2025 1:43 [place] [address] XRay Report Signed Patient: Brent Mcghee MR#: [id number] 2 : 1945 Acct:[id number] Age/Sex: 79 / M ADM Date: 02/18/25 Loc: HO.HHCX Attending Dr: Ryann See DO Ordering Physician: Ryann See DO Date of Service: 02/18/25 Procedure(s): XR foot LT min 3V Accession Number(s): [id number] cc: Ryann See DO Reason for Exam: acute L ankle/foot pain and swelling EXAMINATION: XR FOOT, LEFT CLINICAL INFORMATION: acute L ankle/foot pain and swelling COMPARISON: None available. TECHNIQUE: AP, lateral, and oblique views of the left foot. FINDINGS: Mild hallux valgus deformity at the first MTP joint and degenerative change with joint space narrowing, osteophyte formation and some cystic change in the medial first metatarsal head. There is adjacent soft tissue swelling. Degenerative changes of the midfoot at the talonavicular and navicular cuneiform joints with small osteophytes. Small plantar calcaneal spur. No fracture or dislocation. Mild soft tissue arterial calcification. XR/XR foot LT min 3V IMPRESSION: Hallux valgus deformity at the first MTP joint and mild degenerative changes. Electronically signed by: Micaela Kaur MD 02/18/2025 01:41 PM EST RP Dictated By: Micaela Kaur MD Signed By: <Electronically signed by Micaela Kaur MD in OV> 02/18/25 1341 DD/ 1227 TD/TT: 02/18/25 1314 Rotary Envelope Machine Operator: ARSALAN Procedure Note Donotuseinterpreter, Image - 02/18/[address] [address] XRay Report Signed Patient: Brent Mcghee MMR#: [id number] 2 : 1945cct:[id number] Age/Sex: 79 / MADM Date: 02/18/25 Loc: .HHCX Attending Dr: Ryann See DO Ordering Physician: Ryann See DO Date of Service: 02/18/25 Procedure(s): XR foot LT min 3V Accession Number(s): [id number] cc: Ryann See DO Reason for Exam: acute L ankle/foot pain and swelling EXAMINATION: XR FOOT, LEFT CLINICAL INFORMATION: acute L ankle/foot pain and swelling COMPARISON: None available. TECHNIQUE: AP, lateral, and oblique views of the left foot. FINDINGS: Mild hallux valgus deformity at the first MTP joint and degenerative change with joint space narrowing, osteophyte formation and some cystic change in the medial first metatarsal head. There is adjacent soft tissue swelling. Degenerative changes of the midfoot at the talonavicular and navicular cuneiform joints with small osteophytes. Small plantar calcaneal spur. No fracture or dislocation. Mild soft tissue arterial calcification. XR/XR foot LT min 3V IMPRESSION: Hallux valgus deformity at the first MTP joint and mild degenerative changes. Electronically signed by: Micaela Kaur MD 02/18/2025 01:41 PM EST RP Dictated By: Micaela Kaur MD Signed By: <Electronically signed by Micaela Kaur MD in OV> 02/18/25 1341 DD/ 1227 TD/TT: 02/18/25 1314 Rotary Envelope Machine Operator: ARSALAN Ryann Esa MONTES IMG XR PROCEDURES Final Resu lt documented in this encounter Visit Diagnoses Diagnosis Acute left ankle pain- Primary Acute foot pain, left Polyarthralgia Pain in joint, multiple sites documented in this encounter Additional Health Concerns Active Problems Noted Date Diagnosed Date Help patients manage their type 2 diabetes 02/18 Weekly blood pressure task 02/18/2025 Help patients manage their type 2 diabetes 02/18 Patient has chronic kidney disease 02/18/2025 Weekly blood pressure task 02/18/2025 Patient has chronic kidney disease 02/18/2025 Assessment Noted Time PHQ-9 Depression Total Score: 0 06/25/19 25 11:27 AM EDT documented as of this encounter Care Teams Robotic Toy Inventor Relationship Specialty Start Date End Date Ayesha Sexton MD [address] [place] [phone] PCP - General Family Medicine 12/30/17 documented as of this encounter
--- OUTSIDE RECORDS SUMMARY | 2025-02-18 15:22 | XMS_ITS | Clinical Summary ---
Author Organization [facility], Address [address] [place] [address] [address] [place] [phone] Phone Care Team Providers Care Profile Grinder Technician Name Role Phone Ayesha Sexton MD Primary [...] AM EST) Hemoglobin A1C 7.6(H) (4.0-5.6) % [facility] Comment: Effective 05/11/19, hemoglobin A1c reference range changed. MONITORING: In known diabetic patients, hemoglobin A1c targets should be discussed with health care provider. DIAGNOSTIC USE: The [place] [employer] Association (ADA) and the World Health [...] Supplement 1 Testing performed or reported by [facility], a Service of [facility], [address] [place] [id number] Ugo Roman MD, Healthcare Sales Representative Blood specimen (specimen) Venous blood / Unknown 06/04/2019 8:50 AM EST 06/04/2019 8:51 AM EST us Ryann NGUYEN LAB BLOOD ORDERABLES Final Res ult [facility] from Last 3 Months or Most Recently Relevant to Health Maintenance Insurance Care Teams Profile Grinder Technician Relationship Specialty Start Date End Date Ayesha Sexton MD [address] [place] [address] JORDINSUSAN BISHOP [phone] PCP - General 02/10/19
--- OUTSIDE RECORDS SUMMARY | 2025-02-18 15:22 | XMS_ITS | Encounter Summary ---
Author Organization [employer] Address [address] [facility] 7t [place] [address] Care Team Providers Care Anode Machine Operator Name Role Phone Ayesha Sexton MD Primary Care Provide r Encounter Details Date Type Department Care Team (Late st Contact Info) Description 10/24/2022 Orders Only [facility] [address] [place] [address] Aixa Scott LPN Social History Tobacco Use [...] Sedimentation Rate 11 0 - 15 MM/HR [facility] Comment:Patients with polycy themia and many hemoglobin abnormalitiesmay have depressed sed rates whereas patients with anemiamay have elevated sed rates. 09/27/2023 11:3 0 AM EDT 09/27/2023 12:58 PM EDT Josh Caldwell MD LAB BLOOD ORDERABLES Final Resul t Performing Organization Address [facility] Co de Phone Number [facility] [address] [place] [phone] * Slide Review (09/27/2023 11:30 AM EDT) Slide Review VERIFIED [facility] 09/27/2023 11:3 0 AM EDT 09/27/2023 12:58 PM EDT Josh Caldwell MD LAB BLOOD ORDERABLES Final Resul t Performing Organization Address [facility] Co de Phone Number [facility] [address] [place] [phone] * (ABNORMAL) CBC auto differential (09/27/2023 11:30 AM EDT) White Blood Count 7.7 4.8 - 10.8 X10*3/uL [facility] Red Blood Count 3.95(L) 4.60 - 5.80 X10*6/uL [facility] Hemoglobin 11.6(L) 14.0 - 18.0 g/dl [facility] Hematocrit 34.3(L) 42.0 - 52.0 % [facility] Mean Corpuscular Volume 86.8 80.0 - 98.0 fL [facility] Mean Corpuscular Hemoglobin 29.4 27.0 - 33.0 pg [facility] Mean Corpuscular HGB Conc 33.8 31.0 - 36.0 g/dl [facility] Red Cell Distribution Width 13.4 11.0 - 16.0 % [facility] Platelet Count 114(L) 160 - 400 X10*3/uL [facility] Mean Platelet Volume 9.9 9.4 - 12.4 fL [facility] Neutrophils Percent Auto 47.7 45 - 73 % [facility] Imm Gran Pct Auto 0.3 0.0 - 0.4 % [facility] Lymphocytes Percent Auto 20.2 20 - 40 % [facility] Monocytes Percent Auto 8.4 2 - 11 % [facility] Eosinophils Percent Auto 22.6(H) 0 - 4 % [facility] Basophils Percent Auto 0.8 0 - 2 % [facility] NRBC Pct Auto 0.0 0.0 - 0.2 /100WBC [facility] Neutrophils Absolute Auto 3.7 2.0 - 8.3 x10*3/uL [facility] Imm Gran Abs Auto 0.02 0.00 - 0.03 X10*3/uL [facility] Lymphocytes Absolute Auto 1.6 1.2 - 4.9 X10*3/uL [facility] Monocytes Absolute Auto 0.6 0.1 - 1.2 X10*3/uL [facility] Eosinophils Absolute Auto 1.7(H) 0.0 - 0.4 X10*3/uL [facility] Basophils Absolute Auto 0.1 0.0 - 0.2 X10*3/uL [facility] NRBC Abs Auto 0.000 0.0 - 0.012 X10*3/uL [facility] 09/27/2023 11:3 0 AM EDT 09/27/2023 12:58 PM EDT us Johs Caldwell MD LAB BLOOD ORDERABLES Edited Resu lt - Final [facility] [address] [place] [phone] * (ABNORMAL) Uric acid (09/27/2023 11:30 AM EDT) Uric Acid 10.7(H) 3.4 - 7.0 mg/dL [facility] 09/27/2023 11:3 0 AM EDT 09/27/2023 12:58 PM EDT Josh Caldwell MD LAB BLOOD ORDERABLES Final Resul t Performing Organization Address [facility] Co de Phone Number [facility] [address] [place] [phone] * (ABNORMAL) Basic Metabolic Panel (09/27/2023 11:30 AM EDT) Sodium 139 135 - 145 mmol/L [facility] Potassium 5.2(H) 3.3 - 5.1 mmol/L [facility] Chloride 112(H) 96 - 108 mmol/L [facility] Carbon Dioxide 18(L) 22 - 29 mmol/L [facility] Anion Gap 14 12 - 20 [facility] Urea Nitrogen (BUN) 23(H) 9 - 16 mg/dL [facility] Creatinine, Serum 1.36 0.5 - 1.4 mg/dL [facility] Estimated Glomerular Filt Rate 51 [facility] Comment:NOTE: For -Am erican individuals, multiply the result by 1.210.Chronic Kidney Disease: Estimated GFR < 60 mL/min/[id number] Kidney Disease: Estimated GFR < 15 mL/min/1.73m2 Glucose 166(H) 60 - 115 mg/dL [facility] Calcium 9.4 8.4 - 10.2 mg/dL [facility] 09/27/2023 11:3 0 AM EDT 09/27/2023 12:58 PM EDT us Josh Caldwell MD LAB BLOOD ORDERABLES Final Resul t [facility] [address] [place] [phone] [phone] documented in this encounter Visit Diagnoses Not on filedocumented in this encounter Additional Health Concerns Assessment Noted Time PHQ-9 Depression Total Score: 0 08/28/19 23 10:02 AM EDT documented as of this encounter Care Teams Anode Machine Operator Relationship Specialty Start Date End Date Ayesha Sexton MD [address] [place] [address] PCP - General Family Medicine 12/30/17 documented as of this encounter
--- OUTSIDE RECORDS SUMMARY | 2025-02-18 15:22 | XMS_ITS | Encounter Summary ---
Author Organization [employer] Address [address] [facility] [address]t [place] [address] Care Team Providers Care Gypsum Roofer Name Role Phone Ayesha Sexton MD Primary Care Provide r Reason for Visit * Reason Comments Med Refill Encounter Details Date Type Department Care Team ([facility] st Contact Info) Description 01/11/2023 Refill [facility] [address] [place] [address] Ayesha Sexton MD [address] [place] [address] Vitamin D deficiency Social History Tobacco Use [...] documented as of this encounter Care Teams Gypsum Roofer Relationship Specialty Start Date End Date Ayehsa Sexton MD [address] [facility] [address] PCP - General Family Medicine 12/30/17 documented as of this encounter
--- OUTSIDE RECORDS SUMMARY | 2025-02-18 15:22 | XMS_ITS | Encounter Summary ---
Author Organization [employer] Address [address] [facility] [address]t [place] [address] Care Team Providers Care Soaking Tank Worker Name Role Phone Ayesha Sexton MD Primary Care Provide r Reason for Visit * Reason Comments Med Refill Encounter Details Date Type Department Care Team ([facility] st Contact Info) Description 05/12/2024 Refill [facility] [address] [place], [place] [phone] Mimi Foss MD [address] [place] [address] Acute pain of right shoulder Social History [...] documented as of this encounter Care Teams Soaking Tank Worker Relationship Specialty Start Date End Date Ayesha Sexton MD [address] [place] [phone] PCP - General Family Medicine 12/30/17 documented as of this encounter
--- OUTSIDE RECORDS SUMMARY | 2025-02-18 15:22 | XMS_ITS | Encounter Summary ---
Author Organization [employer] Address [address] [facility] [address] [place] [address] Care Team Providers Care Fancy Packer Name Role Phone Ayesha Sexton MD Primary Care Provide r Encounter Details Date Type Department Care Team ([facility] st Contact Info) Description 11/06/2024 Orders Only [facility] [address] [place], [place] [phone] Ayesha Sexton MD [address] [place], [place] [phone] Primary hypertension; Hyperkalemia Social History Tobacco Use [...] documented as of this encounter Care Teams Fancy Packer Relationship Specialty Start Date End Date Ayesha Sexton MD [address] [place] [address] PCP - General Family Medicine 12/30/17 documented as of this encounter
--- OUTSIDE RECORDS SUMMARY | 2025-02-18 15:22 | XMS_ITS | Clinical Summary ---
Author Organization [employer] Address [address] [facility] 7[address] [place] [address] Care Team Providers Care Advice Line Rn Name Role Phone Ayesha Sexton MD Primary Care Provide r Allergies No known active allergies Medications Blood Glucose Monitoring Suppl (FreeStyle Huntly Lite) w/Device kit TEST BLOOD SUGAR FOUR TIMES DAILY 1 kit 01/01/20 24 Active diphenhydrAMINE (BENADryl) 25 MG tabletIndication s:Skin rash Take 1 tablet (25 mg) by mouth every 8 (eight) hours if needed for itching. 30 tablet 01/01/20 24 Active Lancets miscIndications: Type 2 diabetes mellitus with stage 3 chronic kidney disease, with long-term current use of insulin, unspecified whether stage 3a or 3b CKD (HCC) Use to test blood sugar 2 times daily 100 each 01/01/20 24 Active Blood Glucose Monitoring Suppl (FreeStyle Huntly Lite) w/Device kitIndications:T ype 2 diabetes mellitus with stage 3 chronic kidney disease, with long-term current use of insulin, unspecified whether stage 3a or 3b CKD (HCC) Use to test blood sugar 2 times daily 1 kit 01/01/20 24 Active Lidocaine 5 % creamIndications :Acute pain of right shoulder Apply topically bid 30 g 3 02/20/20 24 Active TRUEplus Lancets 33G miscIndications: Type 2 diabetes mellitus without complications (HCC) USE DIRECTED TO TEST BLOOD SUGAR EVERY DAY 100 each 11 03/12/20 24 Active FREESTYLE LITE test stripIndications :Type 2 diabetes mellitus without complications ([facility]) USE DIRECTED TO TEST BLOOD SUGAR EVERY DAY 100 each 11 03/12/20 24 Active FREESTYLE LITE test stripIndications :Type 2 diabetes mellitus with stage 3 chronic kidney disease, with long-term current use of insulin, unspecified whether stage 3a or 3b CKD (HCC) 1 each by Other route Once per day. Use to test blood sugar 2 times daily 100 each 12 03/12/20 24 Active FreeStyle lancetsIndicatio ns:Type 2 diabetes mellitus with stage 3 chronic kidney disease, with long-term current use of insulin, unspecified whether stage 3a or 3b CKD (HCC) 1 each by Other route Once per day. 100 each 12 03/12/20 24 025 Active hydroCHLOROthiaz von 12.5 MG tabletIndication s:Essential hypertension TAKE 1 TABLET BY MOUTH EVERY DAY IN THE MORNING 90 tablet 3 5 1:00 PM EST 05/18/19 25 Active empagliflozin (Jardiance) 10 MGIndications:Ty pe 2 diabetes mellitus with stage 3 chronic kidney disease, with long-term current use of insulin, unspecified whether stage 3a or 3b CKD (HCC) Take 1 tablet (10 mg) by mouth Once per day. 30 tablet 11 5 1:00 PM EST 06/25/19 25 026 Active D3 Super Strength 50 MCG (1999 UT) capsuleIndicatio ns:Vitamin D deficiency TAKE 1 CAPSULE BY MOUTH EVERY DAY 90 capsule 2 07/07/19 25 Active simvastatin (Zocor) 20 MG tabletIndication s:Hyperlipidemia due to dietary fat intake TAKE 1 TABLET BY MOUTH EVERY DAY 90 tablet 09/10/19 25 Active Blood Pressure Monitoring (Blood Pressure Cuff) miscIndications: Primary hypertension 1 each Once per day. 1 each 11/07/19 25 Active metoprolol succinate XL (Toprol XL) 25 MG 24 hr tabletIndication s:Primary hypertension Take 1 tablet (25 mg) by mouth Once per day. Do not crush or chew. 30 tablet 11 11/07/19 25 026 Active metFORMIN (Glucophage) 1000 MG tabletIndication s:Elevated blood sugar TAKE 1 TABLET BY MOUTH EVERY DAY WITH A MEAL 90 tablet 1 11/11/19 25 Active atorvastatin (Lipitor) 40 MG tablet Take 1 tablet by mouth Once per day. 11/20/19 25 Active Alcohol Swabs (Alcohol Prep) 70 % padsIndications: Type 2 diabetes mellitus with stage 3 chronic kidney disease, with long-term current use of insulin, unspecified whether stage 3a or 3b CKD (HCC) USE DIRECTED TO TEST BLOOD SUGAR TWICE DAILY 100 each 11 01/05/20 25 Active bacitracin 500 UNIT/GM ointmentIndicati ons:Wound of left foot APPLY TOPICALLY TO THE AFFECTED AREA(S) TWICE DAILY 28.4 g 01/16/20 25 Active triamcinolone (Kenalog) 0.1 % creamIndications :Rash APPLY TOPICALLY TO THE AFFECTED AREA(S) TWICE DAILY DIRECTED 30 g 2 01/20/20 25 Active amLODIPine (Norvasc) 10 MG tabletIndication s:Essential hypertension TAKE 1 TABLET BY MOUTH EVERY MORNING 90 tablet 1 02/12/20 25 Active predniSONE (Deltasone) 20 MG tablet Take 1 tablet (20 mg) by mouth 2 times daily for 5 days. 10 tablet 5 1:00 PM EST 02/19/20 25 025 Active Acetaminophen Extra Strength 500 MG tabletIndication s:Polyarthralgia TAKE 2 TABLETS BY MOUTH EVERY 8 HOURS NEEDED FOR PAIN 60 tablet 2 5 1:00 PM EST 02/19/20 25 Active Diclofenac Sodium 1 % gel Apply 2 g topically if needed in the morning, at noon, in the evening, and at bedtime (pain). 150 g 3 5 1:00 PM EST 02/19/20 25 Active canagliflozin (Invokana) 100 MGIndications:Ty pe 2 diabetes mellitus with stage 3 chronic kidney disease, with long-term current use of insulin, unspecified whether stage 3a or 3b CKD (HCC) Take 1 tablet (100 mg) by mouth before breakfast. 30 tablet 11 03/29/20 23 025 Discontinued amLODIPine (Norvasc) 10 MG tabletIndication s:Essential hypertension TAKE 1 TABLET BY MOUTH EVERY MORNING 90 tablet 1 08/12/19 25 025 Discontinued Acetaminophen Extra Strength 500 MG tabletIndication s:Polyarthralgia TAKE 2 TABLETS BY MOUTH EVERY 8 HOURS NEEDED FOR PAIN (leve) 60 tablet 2 11/25/19 25 025 Discontinued(R eorder (will not trigger notification to [...] 11/27/2023 Essential hypertension 11/27/2023 Assessment & Plan (02/08/2025 4:27 PM EST): I advised: - Aerobic exercise [...] consulting health care provider Assessment & Plan (06/24/2024 2:14 PM EDT): [...] without sciatica Stage 3 chronic kidney disease (CMS/HCC) 020 Anemia 05/13/2017 Hypertensive disorder 05/13/2017 Assessment & [...] to enails with type 2 diabetes mellitus 05/13/2017 Type 2 diabetes mellitus wit h [...] Encounters Date Type Department Care Team Description 02/18/2025 11:00 AM EST Office Visit [facility] [address] [place] [phone] Ryann See DO Acute left ankle pain (Primary Dx); Acute foot pain, left; Polyarthralgia 02/18/2025 Travel 02/11/2025 Refill [facility] [address] [place] [address] Ayesha Sexton MD Essential hypertension 02/08/2025 3:30 PM EST Office Visit [facility] [address] [place] [phone] Ayesha Sexton MD Essential hypertension (Primary Dx); Type 2 diabetes mellitus with stage 3 chronic kidney disease, with long-term current use of insulin, unspecified whether stage 3a or 3b CKD (HCC); Encounter for immunization 02/08/2025 Travel 02/01/2025 Patient Outreach [facility] [address] [place] [phone] Ayesha Sexton MD Pre-visit Planning (Pre visit planning LVM ) 01/22/2025 Telephone [facility] [address] [place] [phone] Ayesha Sexton MD telephone call 01/19/2025 Refill [facility] [address] [place] [address] Ayesha Sexton MD Rash 01/14/2025 Refill [facility] [address] [place] [address] Ayesha Sexton MD Wound of left foot 01/02/2025 Refill [facility] [address] [place] [address] Ayesha Sexton MD Type 2 diabetes mellitus with stage 3 chronic kidney disease, with long-term current use of insulin, unspecified whether stage 3a or 3b CKD ([facility]/HCC) 12/15/2024 Telephone [facility] [address], [place] [phone] Ayesha Sexton MD NOV RECALL 12/10/2024 9:20 AM EDT Office Visit [facility] [address] [place] [phone] Josh Caldwell MD Acute otalgia, bilateral (Primary Dx); Stage 3a chronic kidney disease ([facility]/HCC) 12/10/2024 Travel 12/01/2024 2:30 PM EDT Office Visit [facility] [address] [place] [phone] Gaurav, Fanta, OD 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 associated with type 2 diabetes mellitus ([facility]) (Primary Dx); 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; Pseudophakia of both eyes; Asteroid hyalosis of right eye; Presbyopia 12/01/2024 Travel 11/26/2024 Orders Only [facility] [address] [place] [address] Ayesha Sexton MD Wound of left foot; Rash 11/26/2024 Refill [facility] [address] [place] [address] Ayesha Sexton MD Wound of left foot 11/26/2024 Telephone [facility] [address] [place] [address] Ayesha Sexton MD Med Refill 11/23/2024 Refill [facility] [address] [place] [address] Ayesha Sexton MD Polyarthralgia from Last 3 Months Immunizations Immunization Administration Dates Next Due Hep A, Adult 07/23/2009 INFLUENZA VACCINE QUADRIVALE NT RECOMBINANT PRESERVATIVE FREE RIV4 01/20/2020 Influenza High-dose Quadriva lent Preservative Free 12/19/2021,12/21/2020 Influenza injectable quadriv alent IIV4 with preservative 01/19/2019,05/13/2017 Influenza injectable quadriv alent preservative free 03/29/2023,05/14/2016 Influenza, High Dose Seasona l, Preservative Free 02/08/2025,03/25/2024,01/02/2018 Influenza, IIV3, injectable 02/23/2014, 1 Influenza, Split (incl. dhruv fied surface antigen) 02/10/2013,05/09/2012 Pneumococcal Conjugate PCV 13 04/26/2015 Pneumococcal [...] Mass Index 29.76 02/18/2025 10:57 AM EST Plan of Treatment Health Maintenance Due Date Last Done Comments Dental Prophylaxis 1945 Dental X-Ray: Bitewings 1945 Hepatitis C Screening 02/28/1964 RSV Patients and Patients Aged 60 years or older (1 - 1-dose 75+ series) 2021 Dental Oral Exam 05/30/2024 11/27/2023, 07/12/2016 Diabetes: Foot Exam 09/30/2024 10/01/2023, COVID-19 Vaccine ( season) 2024 04/05/2021, 06/23/2020, 05/26/2020 Diabetes: Hemoglobin A1C 05/11/2025 025, 11/06/2024, 06/24/2024, Additional history exists Alcohol/Substance Use Screening 06/24/2025 06/24/2024 Depression Screening 06/24/2025 06/24/2024, 06/25/19 25 SDOH Screening 06/24/2025 06/24/2024 Eye Exam 12/01/2025 12/01/2024, 11/07, 12/01/2024, Additional history exists Lipid Panel 12/10/2025 12/10/2024, 08/0 04/2024, 06/14/2021, Additional history exists Tobacco Screening 02/18/2026 02/18/2025 Dental X-Ray: Full Mouth 11/27/2026 11/27/2023, 09/2016 DTaP/Tdap/Td Vaccines (3 - Td or Tdap) 06/14/2031 06/13/2021, 05/31/2011 Hepatitis A Vaccines Aged Out 07/23/2009 No long er eligible based on patient's age to complete this topic Pneumococcal Vaccine: 50+ Years Completed 04/26/2015, 02/23/2014 Zoster Vaccines Completed 09/29/2021, 07/08, 06/15/2014 Influenza Vaccine Completed 02/08/2025, , 03/29/2023, Additional history exists HIB Vaccines Aged Out No longer eligi [...] on patient's age to complete this topic Goals Goal Patient Goal Type Associated Problems Recent Progress Patient-Stated? Author Help patients manage their type 2 diabetes Care Plan Help patients manage their type 2 diabetes No Jennifer Ferro MA Weekly blood pressure task Care Plan Weekly blood pressure task No Jennifer Ferro MA Help patients manage their type 2 diabetes Care Plan Help patients manage their type 2 diabetes No Jennifer Ferro MA Patient has chronic kidney disease Care Plan Patient has chronic kidney disease No Jennifer Ferro MA Weekly blood pressure task Care Plan Weekly blood pressure task No Ryann See DO Patient has chronic kidney disease Care Plan Patient has chronic kidney disease No Ryann See DO Procedures Procedure Name Priority Date/Time Associated Diagnosis Comments XR ANKLE 3+ VIEWS LEFT Routine 02/18/2025 1:10 PM EST Acute left ankle pain Acute foot pain, left XR FOOT 3+ VIEWS LEFT Routine 02/18/2025 12:27 PM EST Acute left ankle pain Acute foot pain, left POCT GLYCATED HEMOGLOBIN, TOTAL Routine 02/08/2025 3:30 PM EST Type 2 diabetes mellitus with stage 3 chronic kidney disease, with long-term current use of insulin, unspecified whether stage 3a or 3b CKD (HCC) POCT GLUCOSE Routine 02/08/2025 3:29 PM EST Type 2 diabetes mellitus with stage 3 chronic kidney disease, with long-term current use of insulin, unspecified whether stage 3a or 3b CKD (HCC) LIPID PANEL, STANDARD Routine 12/10/2024 9:39 AM EDT Type 2 diabetes mellitus with stage 3 chronic kidney disease, with long-term current use of insulin, unspecified whether stage 3a or 3b CKD (CMS/HCC) COMPREHENSIVE METABOLIC PANEL Routine 12/10/2024 9:39 AM EDT Type 2 diabetes mellitus with stage 3 chronic kidney disease, with long-term current use of insulin, unspecified whether stage 3a or 3b CKD (CMS/HCC) OCT, RETINA - OU - BOTH EYES Routine 12/01/2024 4:01 PM EDT 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 PANORAMIC RADIOGRAPHIC IMAGE Routine 11/27/2023 8:30 AM EDT Edentulism Tooth impaction PERIODIC ORAL EVALUATION - ESTABLISHED PATIENT Routine 11/27/2023 8:30 AM EDT Edentulism Tooth impaction from Last 3 Months or Most Recently Relevant to Health Maintenance Results * XR Ankle 3+ Views Left (02/18/2025 1:10 PM EST) Anatomical Region Laterality Modality Lower Extremities, Ankle Left Radiogr aphic Imaging 02/18/2025 1:10 PM EST Narrative 02/18/2025 1:45 [place] [address] XRay Report Signed Patient: Brent Mcghee MR#: [id number] 2 : 1945 Acct:[id number] Age/Sex: 79 / M ADM Date: 02/18/25 Loc: HO.HHCX Attending Dr: Ryann See DO Ordering Physician: Ryann See DO Date of Service: 02/18/25 Procedure(s): XR ankle LT min 3V Accession Number(s): [id number] cc: Ryann See DO Reason for Exam: [...] 02/18/25 1342 DD/ 1310 TD/TT: 02/18/25 1314 Watch And Clock Repairer: ARSALAN Procedure Note Donotuseinterpreter, Image - 02/18/2025 [place] [address] XRay Report Signed Patient: Brent Mcghee [facility]#: [id number] 2 : 1945cct:[id number] Age/Sex: 79 / MADM Date: 02/18/25 Loc: HO.HHCX Attending Dr: Ryann See DO Ordering Physician: Ryann See DO Date of Service: 02/18/25 Procedure(s): XR ankle LT min 3V Accession Number(s): [id number] cc: Ryann See DO Reason for Exam: [...] 02/18/25 1342 DD/ 1310 TD/TT: 02/18/25 1314 Watch And Clock Repairer: ARSALAN us Ryann See DO IMG XR PROCEDURES Final Resu lt * XR Foot 3+ Views Left (02/18/2025 12:27 PM EST) Anatomical Region Laterality Modality Lower Extremities, Foot Left Radiogra phic Imaging 02/18/2025 12:2 7 PM EST Narrative 02/18/2025 1:43 PM EST [facility] [address] [place] [address] XRay Report Signed Patient: Brent Mcghee MR#: [id number] 2 : 1945 Acct:[id number] Age/Sex: 79 / M ADM Date: 02/18/25 Loc: .HHCX Attending Dr: Ryann See DO Ordering Physician: Ryann See DO Date of Service: 02/18/25 Procedure(s): XR foot LT min 3V Accession Number(s): [id number] cc: Ryann See DO Reason for Exam: [...] Micaela Kaur MD 02/18/2025 01:41 PM EST Dictated By: Micaela Kaur MD Signed By: <Electronically signed by Micaela Kaur MD in OV> 02/18/25 1341 DD/ 26 TD/TT: 02/18/25 1314 Watch And Clock Repairer: ARSALAN Procedure Note Christianoter, Image - 02/18/[address] [address] XRay Report Signed Patient: Brent Mcghee MMR#: [id number] 2 : 1945cct:[id number] Age/Sex: 79 / MADM Date: 02/18/25 Loc: HO.HHCX Attending Dr: Ryann See DO Ordering Physician: Ryann See DO Date of Service: 02/18/25 Procedure(s): XR foot LT min 3V Accession Number(s): [id number] cc: Ryann See DO Reason for Exam: [...] Kaur MD in OV> 02/18/25 1341 DD/ TD/TT: 02/18/25 1314 Watch And Clock Repairer: ARSALAN us Ryann See DO IMG XR PROCEDURES Final Resu lt * (ABNORMAL) POCT Hgb A1c (02/08/2025 3:30 PM EST) Hemoglobin A1C 7.5(A) 4.0 - 5.7 % QC Media Lot # [id number] Lot# Expiration Date 51,227 Blood 02/08/2025 3:30 PM EST Ayesha Callejas MD POINT OF CARE TEST ENTER/EDIT ORDERABLES Edited Result - Final * POCT Glucose (02/08/2025 3:29 PM EST) Glucose Blood, POC 189 60 - 200 mg/dL QC Media Lot # [id number] Lot# Expiration Date 31,126 Blood Capillary blood specimen / Unknown 02/08/2025 3:29 PM EST us Ayesha Callejas MD POINT OF CARE TEST EN TER/EDIT ORDERABLES Final Result * (ABNORMAL) Lipid Panel, Standard (12/10/2024 9:39 AM EDT) Triglycerides 129 <150 mg/dL [facility] Comment:Desirable Triglyceri de: less than 150 mg/dLBorderline High Triglyceride 150-199 mg/dLHigh Triglyceride: 200-499 mg/dLVery High Triglyceride: greater than or equal to 5OO mg/dL Cholesterol 110 <200 mg/dL [facility] Comment:Desirable Cholestero l: less than 200 mg/dLBorderline High Cholesterol: 200-239 mg/dLHigh Cholesterol: greater than 239 mg/dL LDL Cholesterol Calculated 47 <100 mg/dL [facility] Comment:Desirable LDL: less than 100 mg/dLNear Optimal/Above Optimal LDL: 110- 129 mg/dLBorderline High LDL: 130-159 mg/dLHigh LDL: 160-189 mg/dLVery High LDL: greater than or equal to 190 mg/dL HDL Cholesterol 38(L) >40 mg/dL [facility] Comment:Desirable HDL: great er than 40 mg/dL Note: This HDL assay may give artificially low results in patients with liver disease. Blood Venous blood specimen / Unknown 12/10/2024 9:39 AM EDT 12/10/2024 11:10 AM EDT Ayesha Callejas MD LAB BLOOD ORDERABLES Final Result [facility] [address] [place] [address] [phone] * (ABNORMAL) Comprehensive Metabolic Panel (12/10/2024 9:39 AM EDT) Sodium 137 135 - 145 mmol/L [facility] Potassium 5.0 3.3 - 5.1 mmol/L [facility] Chloride 109(H) 96 - 108 mmol/L [facility] Carbon Dioxide 21(L) 22 - 29 mmol/L [facility] Anion Gap 12 12 - 20 [facility] Urea Nitrogen (BUN) 43(H) 9 - 16 mg/dL [facility] Creatinine, Serum 1.76(H) 0.5 - 1.4 mg/dL [facility] Estimated Glomerular Filt Rate 38 [facility] Comment:Chronic Kidney Disea se: Estimated GFR < 60 mL/min/[id number] Kidney Disease: Estimated GFR < 15 mL/min/1.73m2 Glucose 122(H) 60 - 115 mg/dL [facility] Calcium 9.2 8.4 - 10.2 mg/dL [facility] Bilirubin, Total 0.5 0.0 - 1.0 mg/dL [facility] Aspartate Amino Transferase 22 5 - 37 U/L [facility] Alanine Aminotransferase 26 0 - 40 U/L [facility] Total Protein 7.4 6.5 - 8.0 g/dL [facility] Albumin Level 4.4 3.5 - 5.0 g/dL [facility] Alkaline Phosphatase 83 39 - 117 U/L [facility] Blood Venous blood specimen / Unknown 12/10/2024 9:39 AM EDT 12/10/2024 11:10 AM EDT us Ayesha Callejas MD LAB BLOOD ORDERABLES Final Result [facility] [address] [place] [address] [phone] * OCT, Retina - OU - Both [...] Fanta Nolasco OD OPHTH TOMOGRAPHY Final Result from Last 3 Months Additional Health Concerns Active Problems Noted Date Diagnosed Date Help patients manage their type 2 diabetes 02/18 Weekly blood pressure task 02/18/2025 Help patients manage their type 2 diabetes 02/18 Patient has chronic kidney disease 02/18/2025 Weekly blood pressure task 02/18/2025 Patient has chronic kidney disease 02/18/2025 Insurance MEDICARE [facility] STANDARD DENTAL - HSN FULL (MEDICAID) Care Teams Advice Line Rn Relationship Specialty Start Date End Date Ayesha Sexton MD [address] [place] [phone] PCP - General Family Medicine 12/30/17
--- OUTSIDE RECORDS SUMMARY | 2025-02-18 15:22 | XMS_ITS | Encounter Summary ---
Author Organization [employer] Address [address] [facility] [address] [place] [address] Care Team Providers Care Brazer Crawler Torch Name Role Phone Ayesha Sexton MD Primary Care Provide r Encounter Details Date Type Department Care Team (Latest Contact Info) Description 02/18/2025 Travel Social History Tobacco Use Types Packs/Day [...] See DO documented as of this encounter Visit Diagnoses Not on filedocumented in this encounter Additional Health Concerns Active [...] documented as of this encounter Care Teams Brazer Crawler Torch Relationship Specialty Start Date End Date Ayesha Sexton MD [address] [place] [address] PCP - General Family Medicine 12/30/17 documented as of this encounter
--- OUTSIDE RECORDS SUMMARY | 2025-02-18 15:22 | XMS_ITS | Encounter Summary ---
Author Organization [employer] Address [address] [facility] [address] [place] [address] Care Team Providers Care Driver Name Role Phone Ayesha Sexton MD Primary Care Provide r Reason for Visit * Reason Comments Med Refill Encounter Details Date Type Department Care Team ([facility] st Contact Info) Description 11/26/2024 Refill [facility] [address] [place], [place] [phone] Ayesha Sexton MD [address] [place] [address] Wound of left foot Social History Tobacco [...] documented as of this encounter Care Teams Driver Relationship Specialty Start Date End Date Ayesha Sexton MD [address] [place] [address] PCP - General Family Medicine 12/30/17 documented as of this encounter
== END 2025-02-18 12:08 | disposition home or self-care (01) ==
LOC: HO.HHCX 12:07
PROVIDERS: Visit Provider Family Medicine
DX: M25.572 Pain in left ankle and joints of left foot (principal); M79.672 Pain in left foot
CPT/HCPCS: 73610; 73630

== ENCOUNTER → 2025-02-18 12:08 | Outpatient (BNV) | payer MEDICARE, MEDICAID, SELFPAY | PROVIDERS: Visit Provider Radiology Diagnostic Radiology | DX: M89.362 Hypertrophy of bone, left tibia (principal); M89.262 Other disorders of bone development and growth, left tibia; M19.072 Primary osteoarthritis, left ankle and foot; M20.12 Hallux valgus (acquired), left foot | CPT/HCPCS: 73610; 73630 ==